=== PATIENT | female | born 1935 | race Caucasian/White ===

== ENCOUNTER 2017-04-20 08:53 | Inpatient (IN) | payer MEDICARE, BC, OTHER ==
[~2017-04-20] VITALS: Ht 165.1 cm; Wt 83.2 kg
[2017-04-20 13:15] VITALS: BP 164/72
[2017-04-20] MEDS ORDERED: SENN1TAB10 PO (13:29)
[2017-04-20] MEDS ORDERED: LISI10TA4 PO (13:29)
[2017-04-20] MEDS ORDERED: ASPI1TAB PO (13:29)
[2017-04-20] MEDS ORDERED: METO1TAB87 PO (13:29)
[2017-04-20] MEDS ORDERED: COLA100C5 PO (13:29)
[2017-04-20] MEDS ORDERED: TYLE325T5 PO (13:29)
[2017-04-20] MEDS ORDERED: VITA100066 PO (13:29)
[2017-04-20] MEDS ORDERED: PLAV1TAB2 PO (13:29)
[2017-04-20] MEDS ORDERED: ATOR80TA59 PO (13:32)
[2017-04-20] MEDS: ACETAMINOPHEN TAB 650MG DOSE (2X325MG) PO PRN ×2 (14:18→21:16)
[2017-04-20] MEDS: traMADol 50 MG TAB PO PRN (15:56)
[2017-04-20] MEDS: ANALGESIC BALM CRM 120 GM TOP PRN ×2 (16:02→21:16)
--- NOTE | 2017-04-20 17:28 | PMRNOTEPD ---
PMR Note H&P dictation RADHA JUDGE MD Apr 20, 2017 17:28
[2017-04-20 20:00] VITALS: BP 175/75
[2017-04-20] MEDS: METOPROLOL TART 12.5 MG PER 1/2 TAB PO SCH (21:15)
[2017-04-20] MEDS: ATORVASTATIN 20 MG TAB PO SCH (21:15)
[2017-04-21 06:00] VITALS: BP 136/63
[2017-04-21] MEDS: METOPROLOL TART 12.5 MG PER 1/2 TAB PO SCH ×2 (08:35→21:17)
[2017-04-21] MEDS: CLOPIDOGREL 75 MG TAB PO SCH (08:35)
[2017-04-21] MEDS: LISINOPRIL 10 MG TAB PO SCH (08:35)
[2017-04-21] MEDS: ASPIRIN 81 MG ENTERIC TAB PO SCH (08:35)
[2017-04-21] MEDS: VITAMIN D 1,000 INTERNATIONAL UNITS TABLET PO SCH (08:35)
[2017-04-21 09:44] LABS: BASO % 0.4 % (0.0-1.0); EOS # 0.1 K/mm3 (0.0-0.50); EOS % 1.2 % (0.0-3.0); LARGE UNSTAINED CELL # 0.1 K/mm3 (0.0-0.4); LARGE UNSTAINED CELL % 0.9 % (0.0-4.0); MEAN CORPUSCULAR HEMOGLOBIN 32.5 pg (27.0-33.0); MEAN CORPUSCULAR HGB CONC 34.8 g/dl (32.0-36.5); MEAN CORPUSCULAR VOLUME 93.4 fl (80.0-96.0); MONO # 0.5 K/mm3 (0.0-0.8); MONO % 4.4 % (0.0-5.0); NEUTROPHILS # 9.4 K/mm3 (1.8-7.7); NEUTROPHILS % 84.2 % (36.0-66.0); PLATELET COUNT, AUTOMATED 288 k/mm3 (150-450); RED CELL DISTRIBUTION WIDTH 12.5 % (11.5-14.5); WHITE BLOOD COUNT 11.1 K/mm3 (4.0-10.0)
[2017-04-21 10:16] LABS: ALBUMIN 3.1 GM/DL (3.2-5.2); ALBUMIN/GLOBULIN RATIO 0.91 (1.00-1.93); ALKALINE PHOSPHATASE 68 U/L (45-117); ALT/SGPT 21 U/L (12-78); ANION GAP 8 MEQ/L (8-16); AST/SGOT 22 U/L (15-37); BILIRUBIN,TOTAL 1.1 MG/DL (0.2-1.0); BLOOD UREA NITROGEN 18 MG/DL (7-18); CALCIUM LEVEL 8.5 MG/DL (8.8-10.2); CARBON DIOXIDE LEVEL 27 MEQ/L (21-32); CHLORIDE LEVEL 101 MEQ/L (98-107); CREATININE FOR GFR 0.69 MG/DL (0.55-1.02); GLOMERULAR FILTRATION RATE > 60.0 (>39); GLUCOSE, FASTING 121 MG/DL (83-110); POTASSIUM SERUM 3.9 MEQ/L (3.5-5.1); SODIUM LEVEL 136 MEQ/L (136-145); TOTAL PROTEIN 6.5 GM/DL (6.4-8.2)
[2017-04-21] MEDS: traMADol 50 MG TAB PO PRN ×2 (10:36→21:17)
[2017-04-21] MEDS: ANALGESIC BALM CRM 120 GM TOP PRN ×2 (10:37→21:22)
--- NOTE | 2017-04-21 11:05 | CR.PDOC ---
[facility] Consultation Consultation CONSULTATION REPORT FOR: Dr Oconnell REASON FOR CONSULTATION: Medical Management DATE OF VISIT: 04/21/17 ATTENDING: Dr. Jasmeet Gray PCP: Dr Faria HPI: 81year old F with a past medical history significant for Rt MCA CVA. [facility] Admission H&P not available for review at this time. Previous records from [facility] reviewed. Pt was brought to [facility] as per EMS after found on the floor at 3 AM the date of admission. She was not treated with thrombolytic. Pt with residual left sided weakness. She was felt stable to transfer to the care of Dr Oconnell [facility] ARU on 04/20/17. Pt is a poor historian. Eyes are closed throughout exam. Pt complains of chronic pain. Denies any fevers, chills, weakness, fatigue, Headache, Chest Pain, Shortness of breath, cough, palpitations, abdominal pain, N/V/D or changes in bowel or bladder habits. 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 MRI Brain [facility] 04/17/17 acute infarct c/w Rt MCA, chronic microvascular disease. CTA head/neck ordered, I do not see copy of result at this time. H/O TIA HTN Vitamin D Def HLD OA/Chronic pain/leg pain/DJD EKG [facility] 04/17/17. SR 67 bpm. TTE [facility] 04/23. Nml EF, 69%, no wall motion abnormality. personality disorder edentulous PSHX: cholecystectomy SOCHX: Resides in: [facility]. Lives with son and . Uses walker. Marital Status: Kids: 3 Tobacco use: quit 37 yo. ETOH: denies Illicit Drugs: Denies FAMHX: Children: Alive, well ROS: As noted in HPI, otherwise 11pt ROS of systems reviewed and remarkable for chronic knee pain, RLE pain, RUE pain- wearing brace at elbow. PE: GEN: 81yoF, appears stated age. Well-nourished, well developed. No acute distress. Alert and oriented x 3. Limited historian, eyes closed throughout exam. HEENT: Normocephalic, atraumatic. Sclera are nonicteric. Conjunctiva without injection. Nose midline. Nasal turbinates without bogginess. No facial asymmetry. Moist mucous membranes. Pharynx pink and moist, no cobblestoning. Neck supple, trachea midline. No lymphadenopathy or thyromegaly appreciated. CHEST: Regular rate and rhythm, +S1, +S2 LUNGS: Clear to auscultation bilaterally. No wheezes, rales, or rhonchi. Breathing appears symmetric and easy. Patient is speaking in full sentences. No accessory muscle use. ABD: Round, soft, non-tender, non-distended. +Bowel sounds throughout. No rebound or guarding. No costovertebral angle tenderness. EXT: Pulses 2+ bilaterally dorsalis pedis and radial. No lower extremity edema appreciated. SKIN: [place], dry, warm. Capillary refill <2sec. No rashes. NEURO: Alert and oriented x 3. Cranial nerves III-XII are intact. Left hemiparesis noted. A&P: 81year old F with a past medical history significant for Rt MCA CVA. [facility] Admission H&P not available for review at this time. Previous records from [facility] reviewed. Pt was brought to [facility] as per EMS after found on the floor at 3 AM the date of admission. She was not treated with thrombolytic. Pt with residual left sided weakness. She was felt stable to transfer to the care of Dr Oconnell [facility] ARU on 04/20/17. 1. Pt is transferred from [facility] to ARU under the care of Dr Oconnell. Rt MCA CVA with left hemiparesis PT/OT/speech therapy as per ARU. Pain control as per ARU. Bowel care as per ARU. DVT prophylaxis as per ARU. Patient remains on Plavix 75 mg daily, aspirin 81 mg daily and Lipitor 10 mg daily. TTE done at [facility]. Request copy of CTA head/neck report [facility], as per records it was ordered but I do not see result. Possibly consider Carotid U/S pending records. 2. HTN. Continue lisinopril 10 mg daily and metoprolol 12.5 mg twice a day. Blood pressure is noted to be 136/63. 3. Vitamin d deficiency. Continue supplement. Vitamin D level pending. 4. HLD. Continue Lipitor 10 mg daily. 5. Possible UTI. Urine culture pending. Thank you for your consultation. We will continue to follow along with you. Vital Signs/I&O Vital Signs Date Time Temp Pulse Resp B/P (MAP) Pulse Ox O2 Delivery O2 Flow Rate FiO2 04/21/17 10:36 18 04/21/17 08:35 80 136/63 04/21/17 06:00 97.9 98 Room Air I&O- Last 24 Hours up to 6 AM 04/21/17 05:59 Intake Total 160 ml Output Total 200 ml Balance -40 ml Laboratory Data Labs 24H Laboratory Tests 2 04/20/17 15:45: Urine Appearance CLOUDYH, Urine Color YUSUF, Urine pH 5.0, Urine Specific [place] 1.033, Urine Protein 1+H, Urine Glucose (UA) NEGATIVE, Urine Ketones 1+H , Urine Urobilinogen 4.0H, Urine Bilirubin 1+H, Urine Leukocyte Esterase 2+H, Urine Blood 2+H, Urine Nitrite NEGATIVE, Urine WBC (Auto) 162H, Urine RBC (Auto ) 35H, Urine Hyaline Casts (Auto) 0, Urine Bacteria (Auto) NEGATIVE, Urine Squamous Epithelial Cells 28, Urine Amorphous Sediment SMALLH, Urine Mucus (Auto ) MODERATE, Urine Sperm (Auto) 04/21/17 09:26: White Blood Count 11.1H, Red Blood Count 4.30, Hemoglobin 14.0, Hematocrit 40.2 , Mean Corpuscular Volume 93.4, Mean Corpuscular Hemoglobin 32.5, Mean Corpuscular Hemoglobin Concent 34.8, Red Cell Distribution Width 12.5, Platelet Count 288, Neutrophils (%) (Auto) 84.2H, Lymphocytes (%) (Auto) 9.0L, Monocytes (%) (Auto) 4.4, Eosinophils (%) (Auto) 1.2, Basophils (%) (Auto) 0.4, Neutrophils # (Auto) 9.4H, Lymphocytes # (Auto) 1.0L, Monocytes # (Auto) 0.5, Eosinophils # (Auto) 0.1, Basophils # (Auto) 0.0, Large Unclassified Cells % 0.9 , Large Unclassified Cells # 0.1, Anion Gap 8, Glomerular Filtration Rate > 60.0 , Blood Urea Nitrogen 18, Creatinine 0.69, Sodium Level 136, Potassium Level 3.9 , Chloride Level 101, Carbon Dioxide Level 27, Calcium Level 8.5L, Aspartate Amino Transf (AST/SGOT) 22, Alanine Aminotransferase (ALT/SGPT) 21, Alkaline Phosphatase 68, Total Bilirubin 1.1H, Total Protein 6.5, Albumin 3.1L, Albumin/ Globulin Ratio 0.91L CBC/BMP Laboratory Tests 04/21/17 09:26 Red Blood Count 4.30, Mean Corpuscular Volume 93.4, Mean Corpuscular Hemoglobin 32.5, Mean Corpuscular Hemoglobin Concent 34.8, Red Cell Distribution Width 12.5 , Neutrophils (%) (Auto) 84.2 H, Lymphocytes (%) (Auto) 9.0 L, Monocytes (%) ( Auto) 4.4, Eosinophils (%) (Auto) 1.2, Basophils (%) (Auto) 0.4, Neutrophils # ( Auto) 9.4 H, Lymphocytes # (Auto) 1.0 L, Monocytes # (Auto) 0.5, Eosinophils # ( Auto) 0.1, Basophils # (Auto) 0.0, Calcium Level 8.5 L, Aspartate Amino Transf ( AST/SGOT) 22, Alanine Aminotransferase (ALT/SGPT) 21, Alkaline Phosphatase 68, Total Bilirubin 1.1 H, Total Protein 6.5, Albumin 3.1 L Allergies Coded Allergies: Bee Venom (Verified Allergy, Unknown, 04/20/17) Contrast Media (Verified Allergy, Unknown, 04/20/17) Iodine (Unverified Allergy, Unknown, IODINE CONTRAST, 04/20/17) Penicillins (Verified Allergy, Unknown, 04/20/17) Shellfish Allergy (Unverified Allergy, Unknown, 04/20/17) Home Medications Scheduled Aspirin (Aspirin 81) 81 Mg Tab, 81 MG PO DAILY, (Reported) Atorvastatin Calcium (Atorvastatin Calcium) 80 Mg Tab, 80 MG PO QPM, (Reported) STARTED AT [facility] Cholecalciferol (Vitamin D) 1,000 Unit Tab, 1,000 UNIT PO DAILY, (Reported) Clopidogrel Bisulfate (Plavix) 75 Mg Tab, 75 MG PO DAILY, (Reported) STARTED AT [facility] Lisinopril (Lisinopril) 10 Mg Tab, 10 MG PO DAILY, (Reported) STARTED AT [facility] Metoprolol Tartrate (Metoprolol Tartrate) 25 Mg Tab, 25 MG PO BID, (Reported) PATIENT WAS ONLY RECEIVING 12.5MG AT [facility] BUT DISCHARGE MED LIST SAYS 25MG Senna (Senna Lax) 8.6 Mg Tab, 1 TAB PO BID, (Reported) Scheduled PRN Acetaminophen (Tylenol) 325 Mg Tab, 650 MG PO Q6H PRN for PAIN, (Reported) Valentina Fisher Apr 21, 2017 11:05
[2017-04-21 15:00] VITALS: BP 140/91
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
[2017-04-21] MEDS: ACETAMINOPHEN TAB 650MG DOSE (2X325MG) PO PRN (18:04)
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
[2017-04-21] MEDS: ATORVASTATIN 20 MG TAB PO SCH (21:17)
[2017-04-21 21:20] VITALS: BP 158/67
[2017-04-22 06:00] VITALS: BP 146/66
[2017-04-22 07:09] LABS: MEAN CORPUSCULAR HEMOGLOBIN 32.2 pg (27.0-33.0); MEAN CORPUSCULAR HGB CONC 34.5 g/dl (32.0-36.5); MEAN CORPUSCULAR VOLUME 93.2 fl (80.0-96.0); RED CELL DISTRIBUTION WIDTH 12.9 % (11.5-14.5); WHITE BLOOD COUNT 8.4 K/mm3 (4.0-10.0)
[2017-04-22 07:23] LABS: ALBUMIN 2.8 GM/DL (3.2-5.2); ALBUMIN/GLOBULIN RATIO 0.76 (1.00-1.93); ALKALINE PHOSPHATASE 63 U/L (45-117); ALT/SGPT 22 U/L (12-78); ANION GAP 4 MEQ/L (8-16); AST/SGOT 25 U/L (15-37); BILIRUBIN,TOTAL 0.8 MG/DL (0.2-1.0); BLOOD UREA NITROGEN 21 MG/DL (7-18); CALCIUM LEVEL 8.5 MG/DL (8.8-10.2); CARBON DIOXIDE LEVEL 28 MEQ/L (21-32); CHLORIDE LEVEL 102 MEQ/L (98-107); CREATININE FOR GFR 0.73 MG/DL (0.55-1.02); GLOMERULAR FILTRATION RATE > 60.0 (>39); GLUCOSE, FASTING 108 MG/DL (83-110); POTASSIUM SERUM 4.1 MEQ/L (3.5-5.1); SODIUM LEVEL 134 MEQ/L (136-145); TOTAL PROTEIN 6.5 GM/DL (6.4-8.2)
[2017-04-22] MEDS: VITAMIN D 1,000 INTERNATIONAL UNITS TABLET PO SCH (09:16)
[2017-04-22] MEDS: LISINOPRIL 10 MG TAB PO SCH (09:16)
[2017-04-22] MEDS: traMADol 50 MG TAB PO PRN (09:16)
[2017-04-22] MEDS: CLOPIDOGREL 75 MG TAB PO SCH (09:16)
[2017-04-22] MEDS: ASPIRIN 81 MG ENTERIC TAB PO SCH (09:16)
[2017-04-22] MEDS: METOPROLOL TART 12.5 MG PER 1/2 TAB PO SCH ×2 (09:17→21:11)
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
--- NOTE | 2017-04-22 12:17 | IPNPDOC ---
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 Patient continues with lessening frequency to report chronic, constant pain in Right > Left body. She was showing less reluctance to evaluation, care and therapy today. Patient reports hearing problems building up from ear wax. ALLERGIES: See Below MEDICATIONS: Reviewed, see below. OBJECTIVE: VITAL SIGNS: Please see below. PHYSICAL EXAMINATION: GENERAL: Obese, elderly white female with flattened affect, who appears to be in very mild to no acute distress though somewhat anxious at times. However, better energy and more engaging of staff. HEENT: Mild left facial droop but otherwise normocephalic/atraumatic. CARDIOVASCULAR: Regular rate and rhythm with normal S1-S2. LUNGS: All bro clear to auscultation. ABDOMEN: Obese with normal bowel sounds in all quadrants. NEUROLOGICAL: As above. Strength seen in bed testing for exceeds functional strength. When patient is asked to do bed mobility or sitting on edge of bed or especially to try and stand and ambulate effort is improving, though function remains low. SKIN: Coccyx blister. LABORATORY DATA: Reviewed. Please see below. MICROBIOLOGY: Please see below. IMAGING: No new imaging. DVT prophylaxis ordered?: Plavix and aspirin with DENNISE miranda. ASSESSMENT AND PLAN: 1. 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 We will trial standing frame as this should provide safe support and allow the patient to improve her tolerance for being vertical as well as work with her upper extremities unencumbered. 2. Chronic pain syndrome: We need to provide patient lots of structure and refocus her on with her many years her chronic pain, that she will continue to have pain whether or not she works. The structure appears to be working and we need to remain consistent to it as well as support patient with recognitions of the effort she does make. 3. Coccyx blister: We will try and keep patient out of incline positions rather to have her sit at greater than 80 upright or lay at less than 20 to avoid shear on her sacral region. We will also focus on trying to improve her protein nutrition. 4. 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 Dr. Pantoja's evaluation and recommendations are being looked forwarded to. 5. Very mild hyponatremia: Will continue to observe. TIME SPENT: Chart Review, examination and documentation required greater than 25 minutes. Allergies Coded Allergies: Bee Venom (Verified Allergy, Unknown, 04/20/17) Contrast Media (Verified Allergy, Unknown, 04/20/17) Iodine (Unverified Allergy, Unknown, IODINE CONTRAST, 04/20/17) Penicillins (Verified Allergy, Unknown, 04/20/17) Shellfish Allergy (Unverified Allergy, Unknown, 04/20/17) Vital Signs Vital Signs Date Time Temp Pulse Resp B/P (MAP) Pulse Ox O2 Delivery O2 Flow Rate FiO2 04/22/17 09:17 79 146/66 04/22/17 09:16 18 04/22/17 06:00 98.8 96 04/21/17 06:00 Room Air Laboratory Data CBC/BMP Laboratory Tests 04/22/17 06:46 Red Blood Count 4.07, Mean Corpuscular Volume 93.2, Mean Corpuscular Hemoglobin 32.2, Mean Corpuscular Hemoglobin Concent 34.5, Red Cell Distribution Width 12.9 , Calcium Level 8.5 L, Aspartate Amino Transf (AST/SGOT) 25, Alanine Aminotransferase (ALT/SGPT) 22, Alkaline Phosphatase 63, Total Bilirubin 0.8, Total Protein 6.5, Albumin 2.8 L Labs 24H Laboratory Tests 2 04/22/17 06:46: Anion Gap 4L, Glomerular Filtration Rate > 60.0, Blood Urea Nitrogen 21H, Creatinine 0.73, Sodium Level 134L, Potassium Level 4.1, Chloride Level 102, Carbon Dioxide Level 28, Calcium Level 8.5L, Aspartate Amino Transf (AST/SGOT) 25, Alanine Aminotransferase (ALT/SGPT) 22, Alkaline Phosphatase 63, Total Bilirubin 0.8, Total Protein 6.5, Albumin 2.8L, Albumin/Globulin Ratio 0.76L Microbiology Microbiology 04/21/17 Urine Culture, Received Pending 04/20/17 Urine Culture - Final, Complete Current Medications Current Medications Current Medications Acetaminophen (Tylenol Tab) 650 mg Q6HP PRN PO PAIN OR FEVER Last administered on 04/21/17t 18:04; Start 04/20/17 at 12:45; Stop 05/20/17 at 12:44 Aspirin (Ecotrin) 81 mg DAILY PO Last administered on 04/22/17 09:16; Start at 09:00; Stop 05/21/17 at 08:59 Atorvastatin Calcium (Lipitor) 80 mg QPM PO Last administered on 04/21/17 21: 17; Start 04/20/17 at 21:00; Stop 05/20/17 at 20:59 Bisacodyl (Dulcolax Tab) 5 mg DAILYPRN PRN PO CONSTIPATION; Start 04/20/17 at 12:45; Stop 05/20/17 at 12:44 Carbamide Perox/ Anhydrous Glycerin (Debrox) 5 drop Q12H AU ; Start 04/22/17 at 09:00; Stop 04/25/17 at 21:01 Clopidogrel Bisulfate (PLAVix) 75 mg DAILY PO Last administered on 04/22/17 09 :16; Start 04/21/17 at 09:00; Stop 05/21/17 at 08:59 Home Med (Med Rec Complete!) ASDIRECTED XX ; Start 04/20/17 at 13:45; Stop at 13:46; Status DC Lisinopril (Prinivil) 10 mg DAILY PO Last administered on 04/22/17 09:16; Start 04/21/17 at 09:00; Stop 05/21/17 at 08:59 Magnesium Hydroxide (Milk Of Magnesia) 30 ml DAILYPRN PRN PO CONSTIPATION; Start 04/20/17 at 12:45; Stop 05/20/17 at 12:44 Menthol/Methyl Salicylate (Bengay Cream) Apply topically to ri... QIDP PRN TOP Right Leg Pain Last administered on 04/21/17 21:22; Start 04/20/17 at 14:15; Stop 05/20/17 at 14:14 Metoprolol Tartrate (Lopressor) 12.5 mg BID PO Last administered on 04/22/17 09:17; Start 04/20/17 at 21:00; Stop 05/20/17 at 20:59 Sodium Biphosphate/ Sodium Phosphate (Fleet Enema) 1 ea DAILYPRN PRN AL CONSTIPATION; Start 04/20/17 at 12:45; Stop 05/20/17 at 12:44 Tramadol HCl (Ultram) 50 mg Q6HP PRN PO PAIN Last administered on 04/22/17 09: 16; Start 04/20/17 at 14:15; Stop 04/27/17 at 14:14 Vitamin D (Vitamin D) 1,000 units DAILY PO Last administered on 04/22/17 09:16 ; Start 04/21/17 at 09:00; Stop 05/21/17 at 08:59 RADHA JUDGE MD Apr 22, 2017 12:17
[2017-04-22 14:00] VITALS: BP 143/75
--- NOTE | 2017-04-22 14:49 | IPNPDOC ---
Date Seen The patient was seen on 04/22/17. Progress Note HPI: 81year old F with a past medical history significant for Rt MCA CVA. Pt was brought to [facility] as per EMS after found on the floor at 3 AM the date of admission. She was not treated with thrombolytic. Pt with residual left sided weakness. She was felt stable to transfer [facility] the care of [facility]. Pt is a poor historian. Pt complains of chronic pain. She is OOB to recliner and eating at this time. Denies any fevers, chills, weakness, fatigue, Headache, Chest Pain, Shortness of breath, cough, palpitations, abdominal pain, N/V/D or changes in bowel or bladder habits. 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 MRI Brain [facility] 04/17/17 acute infarct c/w Rt MCA, chronic microvascular disease. CTA head/neck ordered, I do not see copy of result at this time. H/O TIA HTN Vitamin D Def HLD OA/Chronic pain/leg pain/DJD EKG [facility] 04/17/17. SR 67 bpm. TTE [facility] 04/23. Nml EF, 69%, no wall motion abnormality. personality disorder edentulous PSHX: cholecystectomy ROS: As noted in HPI, otherwise 11pt ROS of systems reviewed and remarkable for chronic knee pain, RLE pain, RUE pain- wears brace at elbow. PE: GEN: 81yoF, appears stated age. Well-nourished, well developed. No acute distress. Alert and oriented x 3. Limited historian. HEENT: Normocephalic, atraumatic. Sclera are nonicteric. Conjunctiva without injection. Nose midline. Moist mucous membranes. Pharynx pink and moist. Neck supple, trachea midline. No lymphadenopathy or thyromegaly appreciated. CHEST: Regular rate and rhythm, +S1, +S2 LUNGS: Clear to auscultation bilaterally. No wheezes, rales, or rhonchi. Breathing appears symmetric and easy. Patient is speaking in full sentences. No accessory muscle use. ABD: Round, soft, non-tender, non-distended. +Bowel sounds throughout. No rebound or guarding. No costovertebral angle tenderness. EXT: Pulses 2+ bilaterally dorsalis pedis and radial. No lower extremity edema appreciated. SKIN: [place], dry, warm. Capillary refill <2sec. No rashes. NEURO: Alert and oriented x 3. Cranial nerves III-XII are intact. Left hemiparesis noted. A&P: 81year old F with a past medical history significant for Rt MCA CVA. Pt was brought to [facility] as per EMS after found on the floor at 3 AM the date of admission. She was not treated with thrombolytic. Pt with residual left sided weakness. She was felt stable to transfer to the care of Dr Oconnell [facility] on 04/20/17. 1. Pt is transferred from [facility] to ARU under the care of Dr Oconnell. Rt MCA CVA with left hemiparesis PT/OT/speech therapy as per ARU. Pain control as per ARU. Bowel care as per ARU. DVT prophylaxis as per ARU. Patient remains on Plavix 75 mg daily, aspirin 81 mg daily and Lipitor 10 mg daily. TTE done at [facility]. Requested copy of CTA head/neck report [facility], as per records it was ordered but I do not see result. Possibly consider Carotid U/S pending records. Records are pending. 2. HTN. Continue lisinopril 10 mg daily and metoprolol 12.5 mg twice a day. Blood pressure is noted to be 146/66. Monitor. 3. Vitamin d deficiency. Continue supplement. Vitamin D level 34.1. 4. HLD. Continue Lipitor 10 mg daily. 5. Abnormal UA. Contaminated specimen. Urine culture negative. VS, I&O, 24H, Fishbone Vital Signs/I&O Vital Signs Date Time Temp Pulse Resp B/P (MAP) Pulse Ox O2 Delivery O2 Flow Rate FiO2 04/22/17 09:17 79 146/66 04/22/17 09:16 18 04/22/17 06:00 98.8 96 04/21/17 06:00 Room Air I&O- Last 24 Hours up to 6 AM 04/22/17 06:00 Intake Total 660 ml Output Total 430 ml Balance 230 ml Laboratory Data 24H LABS Laboratory Tests 2 04/22/17 06:46: Anion Gap 4L, Glomerular Filtration Rate > 60.0, Blood Urea Nitrogen 21H, Creatinine 0.73, Sodium Level 134L, Potassium Level 4.1, Chloride Level 102, Carbon Dioxide Level 28, Calcium Level 8.5L, Aspartate Amino Transf (AST/SGOT) 25, Alanine Aminotransferase (ALT/SGPT) 22, Alkaline Phosphatase 63, Total Bilirubin 0.8, Total Protein 6.5, Albumin 2.8L, Albumin/Globulin Ratio 0.76L CBC/BMP Laboratory Tests 04/22/17 06:46 Red Blood Count 4.07, Mean Corpuscular Volume 93.2, Mean Corpuscular Hemoglobin 32.2, Mean Corpuscular Hemoglobin Concent 34.5, Red Cell Distribution Width 12.9 , Calcium Level 8.5 L, Aspartate Amino Transf (AST/SGOT) 25, Alanine Aminotransferase (ALT/SGPT) 22, Alkaline Phosphatase 63, Total Bilirubin 0.8, Total Protein 6.5, Albumin 2.8 L Microbiology Microbiology 04/22/17 MRSA Screen, Received Pending 04/21/17 Urine Culture - Final, Complete 04/20/17 Urine Culture - Final, Complete Valentina Fisher Apr 22, 2017 14:49
[2017-04-22] MEDS: CARBAMIDE PEROXIDE 6.5% OTIC SOLN 15ML AU SCH ×2 (14:57→21:12)
[2017-04-22] MEDS: BISACODYL 5 MG TAB PO PRN (17:48)
[2017-04-22] MEDS: MOM 30ML SUSPENSION UDC PO PRN (17:48)
[2017-04-22 20:00] VITALS: BP 158/70
[2017-04-22] MEDS: ATORVASTATIN 20 MG TAB PO SCH (21:11)
[2017-04-23 06:00] VITALS: BP 133/84
[2017-04-23] MEDS: CARBAMIDE PEROXIDE 6.5% OTIC SOLN 15ML AU SCH ×2 (09:04→21:04)
[2017-04-23] MEDS: ANALGESIC BALM CRM 120 GM TOP PRN (09:06)
[2017-04-23] MEDS: METOPROLOL TART 12.5 MG PER 1/2 TAB PO SCH ×2 (09:07→21:01)
[2017-04-23] MEDS: CLOPIDOGREL 75 MG TAB PO SCH (09:08)
[2017-04-23] MEDS: VITAMIN D 1,000 INTERNATIONAL UNITS TABLET PO SCH (09:08)
[2017-04-23] MEDS: LISINOPRIL 10 MG TAB PO SCH (09:08)
[2017-04-23] MEDS: ASPIRIN 81 MG ENTERIC TAB PO SCH (09:08)
[2017-04-23] MEDS: traMADol 50 MG TAB PO PRN (09:15)
[2017-04-23 14:31] VITALS: BP 130/62
[2017-04-23] MEDS: MOM 30ML SUSPENSION UDC PO PRN (16:40)
[2017-04-23] MEDS: ONDANSETRON 4 MG TAB (S0181) PO PRN (16:41)
[2017-04-23 20:00] VITALS: BP 133/62
[2017-04-23] MEDS: BISACODYL 5 MG TAB PO PRN (21:03)
[2017-04-23] MEDS: ATORVASTATIN 20 MG TAB PO SCH (21:03)
[2017-04-24] MEDS: ANALGESIC BALM CRM 120 GM TOP PRN ×3 (00:13→19:52)
[2017-04-24 06:00] VITALS: BP 130/57
[2017-04-24] MEDS: traMADol 50 MG TAB PO PRN ×2 (09:03→17:44)
[2017-04-24] MEDS: VITAMIN D 1,000 INTERNATIONAL UNITS TABLET PO SCH (09:04)
[2017-04-24] MEDS: ASPIRIN 81 MG ENTERIC TAB PO SCH (09:04)
[2017-04-24] MEDS: CLOPIDOGREL 75 MG TAB PO SCH (09:04)
[2017-04-24] MEDS: LISINOPRIL 10 MG TAB PO SCH (09:05)
[2017-04-24] MEDS: METOPROLOL TART 12.5 MG PER 1/2 TAB PO SCH ×2 (09:05→19:51)
[2017-04-24] MEDS: ONDANSETRON 4 MG TAB (S0181) PO PRN (09:05)
[2017-04-24] MEDS: CARBAMIDE PEROXIDE 6.5% OTIC SOLN 15ML AU SCH ×2 (09:06→19:51)
[2017-04-24] MEDS: FLEET ENEMA PR PRN (09:10)
[2017-04-24 14:00] VITALS: BP 115/55
[2017-04-24] MEDS: ATORVASTATIN 20 MG TAB PO SCH (19:50)
[2017-04-24 20:00] VITALS: BP 129/61
[2017-04-25 06:00] VITALS: BP 119/54
[2017-04-25] MEDS: LISINOPRIL 10 MG TAB PO SCH (08:19)
[2017-04-25] MEDS: ASPIRIN 81 MG ENTERIC TAB PO SCH (08:19)
[2017-04-25] MEDS: CLOPIDOGREL 75 MG TAB PO SCH (08:19)
[2017-04-25] MEDS: VITAMIN D 1,000 INTERNATIONAL UNITS TABLET PO SCH (08:19)
[2017-04-25] MEDS: CARBAMIDE PEROXIDE 6.5% OTIC SOLN 15ML AU SCH ×2 (08:20→20:12)
[2017-04-25] MEDS: METOPROLOL TART 12.5 MG PER 1/2 TAB PO SCH ×2 (08:20→20:09)
--- NOTE | 2017-04-25 09:04 | IPNPDOC ---
Date Seen The patient was seen on 04/25/17. Progress Note HPI: 81year old F with a past medical history significant for Rt MCA CVA. Pt was brought to [facility] as per EMS after found on the floor at 3 AM the date of admission. She was not treated with thrombolytic. Pt with residual left sided weakness. She was felt stable to transfer to the care of Dr Oconnell [facility] on 04/20/17. Pt is a poor historian. Pt continues with chronic pain. She is sitting up in bed eating at this time. Denies any fevers, chills, weakness, fatigue, Headache, Chest Pain, Shortness of breath, cough, palpitations, abdominal pain, N/V/D or changes in bowel or bladder habits. 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 MRI Brain [facility] 04/17/17 acute infarct c/w Rt MCA, chronic microvascular disease. CTA head/neck ordered, I do not see copy of result at this time. H/O TIA HTN Vitamin D Def HLD OA/Chronic pain/leg pain/DJD EKG [facility] 04/17/17. SR 67 bpm. TTE [facility] 04/23. Nml EF, 69%, no wall motion abnormality. personality disorder edentulous PSHX: cholecystectomy ROS: As noted in HPI, otherwise 11pt ROS of systems reviewed and remarkable for chronic knee pain, RLE pain, RUE pain- wears brace at elbow. Item Value Date Time Sodium Level 134 MEQ/L L 04/22/17 0646 Potassium Level 4.1 MEQ/L 04/22/17 0646 Chloride Level 102 MEQ/L 04/22/17 0646 Carbon Dioxide Level 28 MEQ/L 04/22/17 0646 Anion Gap 4 MEQ/L L 04/22/17 0646 Blood Urea Nitrogen 21 MG/DL H 04/22/17 0646 Creatinine 0.73 MG/DL 04/22/17 0646 White Blood Count 8.4 K/mm3 04/22/17 0646 Red Blood Count 4.07 M/mm3 04/22/17 0646 Hemoglobin 13.1 g/dl 04/22/17 0646 Hematocrit 37.9 % 04/22/17 0646 Mean Corpuscular Volume 93.2 fl 04/22/17 0646 Mean Corpuscular Hemoglobin 32.2 pg 04/22/17 0646 Mean Corpuscular Hemoglobin Concent 34.5 g/dl 04/22/17 06 Red Cell Distribution Width 12.9 % 04/22/17 06 Platelet Count 268 k/mm3 04/22/17 0646 PE: GEN: 81yoF, appears stated age. Well-nourished, well developed. No acute distress. Alert and oriented x 3. Limited historian. HEENT: Normocephalic, atraumatic. Sclera are nonicteric. Conjunctiva without injection. Nose midline. Moist mucous membranes. trachea midline. No lymphadenopathy or thyromegaly appreciated. CHEST: Regular rate and rhythm, +S1, +S2 LUNGS: Clear to auscultation bilaterally. No wheezes, rales, or rhonchi. Breathing appears symmetric and easy. Patient is speaking in full sentences. No accessory muscle use. ABD: Round, soft, non-tender, non-distended. +Bowel sounds throughout. No rebound or guarding. No costovertebral angle tenderness. EXT: Pulses 2+ bilaterally dorsalis pedis and radial. No lower extremity edema appreciated. SKIN: [place], dry, warm. NEURO: Alert and oriented x 3. Left hemiparesis noted. A&P: 81year old F with a past medical history significant for Rt MCA CVA. Pt was brought to [facility] as per EMS after found on the floor at 3 AM the date of admission. She was not treated with thrombolytic. Pt with residual left sided weakness. She was felt stable to transfer to the care of Dr Oconnell [facility] on 04/20/17. 1. Pt is transferred from [facility] to ARU under the care of Dr Oconnell. Rt MCA CVA with left hemiparesis PT/OT/speech therapy as per ARU. Pain control as per ARU. Bowel care as per ARU. DVT prophylaxis as per ARU. Patient remains on Plavix 75 mg daily, aspirin 81 mg daily and Lipitor 10 mg daily. TTE done at [facility]. Requested copy of CTA head/neck report [facility], as per records it was ordered but I do not see result. Possibly consider Carotid U/S pending records. Records are still pending. 2. HTN. Continue lisinopril 10 mg daily and metoprolol 12.5 mg twice a day. Blood pressure is noted to be 119/54. Monitor. 3. Vitamin d deficiency. Continue supplement. Vitamin D level 34.1. 4. HLD. Continue Lipitor 10 mg daily. 5. Abnormal UA. Contaminated specimen. Urine culture negative 04/21/17. 6. Hypionatremia. 134 /. previously WNL, Recheck labs in AM. VS, I&O, 24H, Fishbone Vital Signs/I&O Vital Signs Date Time Temp Pulse Resp B/P (MAP) Pulse Ox O2 Delivery O2 Flow Rate FiO2 04/25/17 08:20 74 119/54 04/25/17 06:00 98.8 18 93 Room Air I&O- Last 24 Hours up to 6 AM 04/25/17 05:59 Intake Total 750 ml Output Total 400 ml Balance 350 ml Laboratory Data Microbiology Microbiology 04/24/17 Eye/Ear/Nose/Throat Culture, Received Pending 04/23/17 Eye/Ear/Nose/Throat Culture, Received Pending 04/22/17 MRSA Screen - Final, Complete 04/21/17 Urine Culture - Final, Complete 04/20/17 Urine Culture - Final, Complete Valentina Fisher Apr 25, 2017 09:03
--- NOTE | 2017-04-25 10:23 | IPNPDOC ---
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 Patient continues with lessening frequency to report chronic, constant pain in Right > Left body. Reports and family may not want her to come home. ALLERGIES: See Below MEDICATIONS: Reviewed, see below. OBJECTIVE: VITAL SIGNS: Please see below. PHYSICAL EXAMINATION: GENERAL: Obese, elderly white female with flattened affect, who appears to be in very mild to no acute distress though somewhat anxious at times. However, better energy and more engaging of staff. HEENT: Mild left facial droop but otherwise normocephalic/atraumatic. CARDIOVASCULAR: Regular rate and rhythm with normal S1-S2. LUNGS: All bro clear to auscultation. ABDOMEN: Obese with normal bowel sounds in all quadrants. NEUROLOGICAL: As above. Strength seen in bed testing for exceeds functional strength. When patient is asked to do bed mobility or sitting on edge of bed or especially to try and stand and ambulate effort is improving, though function remains low. SKIN: Coccyx blister. LABORATORY DATA: Reviewed. Please see below. MICROBIOLOGY: Please see below. IMAGING: No new imaging. DVT prophylaxis ordered?: Plavix and aspirin with DENNISE miranda. ASSESSMENT AND PLAN: 1. 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 We will trial standing frame as this should provide safe support and allow the patient to improve her tolerance for being vertical as well as work with her upper extremities unencumbered. Patient reviewed in TEAM ROUNDS today, with Reports of patient declining some therapy activities and seeming more withdrawn/ depressed. However, it appears she will participate in 3 hours today, but need to have her invested in doing the recommended therapy and not trying to pick what she likes [place]. If not progressing and participating fully will look at other treatment options/environments. Left neglect is a major problem in learning skills at this time. Also we need to increase time up to get patient use to it. 2. Chronic pain syndrome: We need to provide patient lots of structure and refocus her on with her many years her chronic pain, that she will continue to have pain whether or not she works. The structure appears to be working and we need to remain consistent to it as well as support patient with recognitions of the effort she does make. 3. Coccyx blister: We will try and keep patient out of incline positions rather to have her sit at greater than 80 upright or lay at less than 20 to avoid shear on her sacral region. We will also focus on trying to improve her protein nutrition. 4. 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 Dr. Pantoja's evaluation and recommendations are being looked forwarded to but not yet seen. I was not able to find it in the written chart. I have paged him. Hopefully, a report and care plan are forthcoming soon. 5. Very mild hyponatremia: Will continue to observe with CMP tomorrow and BMP on . TIME SPENT: Chart Review, examination and documentation required greater than 35 minutes. Allergies Coded Allergies: Bee Venom (Verified Allergy, Unknown, 04/20/17) Contrast Media (Verified Allergy, Unknown, 04/20/17) Iodine (Unverified Allergy, Unknown, IODINE CONTRAST, 04/20/17) Penicillins (Verified Allergy, Unknown, 04/20/17) Shellfish Allergy (Unverified Allergy, Unknown, 04/20/17) Vital Signs Vital Signs Date Time Temp Pulse Resp B/P (MAP) Pulse Ox O2 Delivery O2 Flow Rate FiO2 04/25/17 08:20 74 119/54 04/25/17 06:00 98.8 18 93 Room Air Microbiology Microbiology 04/24/17 Eye/Ear/Nose/Throat Culture, Received Pending 04/23/17 Eye/Ear/Nose/Throat Culture, Received Pending 04/22/17 MRSA Screen - Final, Complete 04/21/17 Urine Culture - Final, Complete 04/20/17 Urine Culture - Final, Complete Current Medications Current Medications Current Medications Acetaminophen (Tylenol Tab) 650 mg Q6HP PRN PO PAIN OR FEVER Last administered on 04/21/17 18:04; Start 04/20/17 at 12:45; Stop 05/20/17 at 12:44 Aspirin (Ecotrin) 81 mg DAILY PO Last administered on 04/25/17 08:19; Start at 09:00; Stop 05/21/17 at 08:59 Atorvastatin Calcium (Lipitor) 80 mg QPM PO Last administered on 04/24/17 19: 50; Start 04/20/17 at 21:00; Stop 05/20/17 at 20:59 Bisacodyl (Dulcolax Tab) 5 mg DAILYPRN PRN PO CONSTIPATION Last administered on 04/23/17 21:03; Start 04/20/17 at 12:45; Stop 05/20/17 at 12:44 Carbamide Perox/ Anhydrous Glycerin (Debrox) 5 drop Q12H AU Last administered on 04/25/17 08:20; Start 04/22/17 at 09:00; Stop 04/25/17 at 21:01 Clopidogrel Bisulfate (PLAVix) 75 mg DAILY PO Last administered on 04/25/17 08 :19; Start 04/21/17 at 09:00; Stop 05/21/17 at 08:59 Home Med (Med Rec Complete!) ASDIRECTED XX ; Start 04/20/17 at 13:45; Stop at 13:46; Status DC Lisinopril (Prinivil) 10 mg DAILY PO Last administered on 04/25/17 08:19; Start 04/21/17 at 09:00; Stop 05/21/17 at 08:59 Magnesium Hydroxide (Milk Of Magnesia) 30 ml DAILYPRN PRN PO CONSTIPATION Last administered on 04/23/17 16:40; Start 04/20/17 at 12:45; Stop 05/20/17 at 12:44 Menthol/Methyl Salicylate (Bengay Cream) Apply topically to ri... QIDP PRN TOP Right Leg Pain Last administered on 04/24/17 19:52; Start 04/20/17 at 14:15; Stop 05/20/17 at 14:14 Metoprolol Tartrate (Lopressor) 12.5 mg BID PO Last administered on 04/25/17 08:20; Start 04/20/17 at 21:00; Stop 05/20/17 at 20:59 Ondansetron HCl (Zofran) 4 mg Q8HP PRN PO NAUSEA OR VOMITING Last administered on 04/24/17 09:05; Start 04/23/17 at 11:45; Stop 05/23/17 at 11:44 Sodium Biphosphate/ Sodium Phosphate (Fleet Enema) 1 ea DAILYPRN PRN [place] CONSTIPATION Last administered on 04/24/17 09:10; Start 04/20/17 at 12:45; Stop 05/20/17 at 12:44 Tramadol HCl (Ultram) 50 mg Q6HP PRN PO PAIN Last administered on 04/24/17 17: 44; Start 04/20/17 at 14:15; Stop 05/04/17 at 12:00 Vitamin D (Vitamin D) 1,000 units DAILY PO Last administered on 04/25/17 08:19 ; Start 04/21/17 at 09:00; Stop 05/21/17 at 08:59 RADHA JUDGE MD Apr 25, 2017 10:23
[2017-04-25 14:00] VITALS: BP 124/59
[2017-04-25 20:00] VITALS: BP 113/56
[2017-04-25] MEDS: ATORVASTATIN 20 MG TAB PO SCH (20:09)
[2017-04-25] MEDS: traMADol 50 MG TAB PO PRN (20:12)
[2017-04-25] MEDS: CLOTRIMAZOLE 1% VAG CR 45 GM TOP SCH (20:12)
[2017-04-26 06:00] VITALS: BP 150/70
[2017-04-26 07:23] LABS: ALBUMIN 2.8 GM/DL (3.2-5.2); ALBUMIN/GLOBULIN RATIO 0.78 (1.00-1.93); ALKALINE PHOSPHATASE 68 U/L (45-117); ALT/SGPT 24 U/L (12-78); ANION GAP 6 MEQ/L (8-16); AST/SGOT 19 U/L (15-37); BLOOD UREA NITROGEN 19 MG/DL (7-18); CALCIUM LEVEL 8.4 MG/DL (8.8-10.2); CARBON DIOXIDE LEVEL 30 MEQ/L (21-32); CHLORIDE LEVEL 101 MEQ/L (98-107); CREATININE FOR GFR 0.77 MG/DL (0.55-1.02); GLOMERULAR FILTRATION RATE > 60.0 (>39); GLUCOSE, FASTING 99 MG/DL (83-110); POTASSIUM SERUM 4.7 MEQ/L (3.5-5.1); SODIUM LEVEL 137 MEQ/L (136-145); TOTAL PROTEIN 6.4 GM/DL (6.4-8.2)
[2017-04-26] MEDS: ASPIRIN 81 MG ENTERIC TAB PO SCH (08:42)
[2017-04-26] MEDS: VITAMIN D 1,000 INTERNATIONAL UNITS TABLET PO SCH (08:42)
[2017-04-26] MEDS: CLOTRIMAZOLE 1% VAG CR 45 GM TOP SCH ×2 (08:42→20:01)
[2017-04-26] MEDS: LISINOPRIL 10 MG TAB PO SCH (08:42)
[2017-04-26] MEDS: CLOPIDOGREL 75 MG TAB PO SCH (08:42)
[2017-04-26] MEDS: METOPROLOL TART 12.5 MG PER 1/2 TAB PO SCH ×2 (08:42→20:05)
--- NOTE | 2017-04-26 10:59 | IPNPDOC ---
Date Seen The patient was seen on 04/26/17. Progress Note HPI: 81year old F with a past medical history significant for Rt MCA CVA. Pt was brought to [facility] as per EMS after found on the floor at 3 AM the date of admission. She was not treated with thrombolytic. Pt with residual left sided weakness. She was felt stable to transfer to the care of Dr Oconnell [facility] on 04/20/17. Pt is a poor historian. Pt continues with chronic pain. She is sitting up in chair eating at this time. Denies any fevers, chills, weakness, fatigue, Headache, Chest Pain, Shortness of breath, cough, palpitations, abdominal pain, N/V/D or changes in bowel or bladder habits. 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 MRI Brain [facility] 04/17/17 acute infarct c/w Rt MCA, chronic microvascular disease. CTA head/neck ordered, I do not see copy of result at this time. H/O TIA HTN Vitamin D Def HLD OA/Chronic pain/leg pain/DJD EKG [facility] 04/17/17. SR 67 bpm. TTE [facility] 04/23. Nml EF, 69%, no wall motion abnormality. personality disorder edentulous PSHX: cholecystectomy ROS: As noted in HPI, otherwise 11pt ROS of systems reviewed and remarkable for chronic knee pain, RLE pain, RUE pain- wears brace at elbow. PE: GEN: 81yoF, appears stated age. Well-nourished, well developed. No acute distress. Alert and oriented x 3. Limited historian. HEENT: Normocephalic, atraumatic. Sclera are nonicteric. Conjunctiva without injection. Nose midline. Moist mucous membranes. trachea midline. No lymphadenopathy or thyromegaly appreciated. CHEST: Regular rate and rhythm, +S1, +S2 LUNGS: Clear to auscultation bilaterally. No wheezes, rales, or rhonchi. Breathing appears symmetric and easy. Patient is speaking in full sentences. No accessory muscle use. ABD: Round, soft, non-tender, non-distended. +Bowel sounds throughout. No rebound or guarding. No costovertebral angle tenderness. EXT: Pulses 2+ bilaterally dorsalis pedis and radial. No lower extremity edema appreciated. SKIN: [place], dry, warm. NEURO: Alert and oriented x 3. Left hemiparesis/hemineglect noted. A&P: 81year old F with a past medical history significant for Rt MCA CVA. Pt was brought to [facility] as per EMS after found on the floor at 3 AM the date of admission. She was not treated with thrombolytic. Pt with residual left sided weakness. She was felt stable to transfer to the care of Dr Oconnell [facility] on 04/20/17. 1. Pt is transferred from [facility] to ARU under the care of Dr Oconnell. Rt MCA CVA with left hemiparesis PT/OT/speech therapy as per ARU. Pain control as per ARU. Bowel care as per ARU. DVT prophylaxis as per ARU. Patient remains on Plavix 75 mg daily, aspirin 81 mg daily and Lipitor 10 mg daily. TTE done at [facility]. Requested copy of CTA head/neck report [facility], as per records it was ordered but I do not see result. Possibly consider Carotid U/S pending records. Records are still pending. 2. HTN. Continue lisinopril 10 mg daily and metoprolol 12.5 mg twice a day. Blood pressure is 113/56-150/70. Monitor. 3. Vitamin d deficiency. Continue supplement. Vitamin D level 34.1. 4. HLD. Continue Lipitor 10 mg daily. 5. Abnormal UA. Contaminated specimen. Urine culture negative 04/21/17. 6. Hypionatremia. resolved. Item Value Date Time Sodium Level 137 MEQ/L 04/26/17 0639 Potassium Level 4.7 MEQ/L 04/26/17 0639 Chloride Level 101 MEQ/L 04/26/17 0639 Carbon Dioxide Level 30 MEQ/L 04/26/17 0639 Anion Gap 6 MEQ/L L 04/26/17 0639 Blood Urea Nitrogen 19 MG/DL H 04/26/17 0639 Creatinine 0.77 MG/DL 04/26/17 0639 Glomerular Filtration Rate > 60.0 04/26/17 0639 Fasting Glucose 99 MG/DL 04/26/17 0639 Calcium Level 8.4 MG/DL L 04/26/17 0639 Total Bilirubin 1.0 MG/DL 04/26/17 0639 Aspartate Amino Transf (AST/SGOT) 19 U/L 04/26/17 0639 Alanine Aminotransferase (ALT/SGPT) 24 U/L 04/26/17 0639 Alkaline Phosphatase 68 U/L 04/26/17 0639 Total Protein 6.4 GM/DL 04/26/17 0639 Albumin 2.8 GM/DL L 04/26/17 0639 Albumin/Globulin Ratio 0.78 L 04/26/17 0639 VS, I&O, 24H, Fishbone Vital Signs/I&O Vital Signs Date Time Temp Pulse Resp B/P (MAP) Pulse Ox O2 Delivery O2 Flow Rate FiO2 04/26/17 08:42 72 150/70 04/26/17 06:00 98.0 18 96 Room Air I&O- Last 24 Hours up to 6 AM 04/26/17 05:59 Intake Total 270 ml Output Total 475 ml Balance -205 ml Laboratory Data 24H LABS Laboratory Tests 2 04/26/17 06:39: Anion Gap 6L, Glomerular Filtration Rate > 60.0, Blood Urea Nitrogen 19H, Creatinine 0.77, Sodium Level 137, Potassium Level 4.7, Chloride Level 101, Carbon Dioxide Level 30, Calcium Level 8.4L, Aspartate Amino Transf (AST/SGOT) 19, Alanine Aminotransferase (ALT/SGPT) 24, Alkaline Phosphatase 68, Total Bilirubin 1.0, Total Protein 6.4, Albumin 2.8L, Albumin/Globulin Ratio 0.78L CBC/BMP Laboratory Tests 04/26/17 06:39 Calcium Level 8.4 L, Aspartate Amino Transf (AST/SGOT) 19, Alanine Aminotransferase (ALT/SGPT) 24, Alkaline Phosphatase 68, Total Bilirubin 1.0, Total Protein 6.4, Albumin 2.8 L Microbiology Microbiology 04/24/17 Eye/Ear/Nose/Throat Culture, Received Pending 04/23/17 Eye/Ear/Nose/Throat Culture - Final, Complete 04/22/17 MRSA Screen - Final, Complete 04/21/17 Urine Culture - Final, Complete 04/20/17 Urine Culture - Final, Complete Valentina Fisher Apr 26, 2017 10:59
[2017-04-26 14:00] VITALS: BP 118/57
--- NOTE | 2017-04-26 14:13 | IPNPDOC ---
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 Patient continues with lessening frequency to report chronic, constant pain in Right > Left body. Reports and family may not want her to come home. ALLERGIES: See Below MEDICATIONS: Reviewed, see below. OBJECTIVE: VITAL SIGNS: Please see below. PHYSICAL EXAMINATION: GENERAL: Obese, elderly white female with flattened affect, who appears to be in very mild to no acute distress though somewhat anxious at times. HEENT: Mild left facial droop but otherwise normocephalic/atraumatic. CARDIOVASCULAR: Regular rate and rhythm with normal S1-S2. LUNGS: All bro clear to auscultation. ABDOMEN: Obese with normal bowel sounds in all quadrants. NEUROLOGICAL: As above. Some strength seen in bed testing for exceeds functional strength. When patient is asked to do bed mobility or sitting on edge of bed or especially to try and stand and ambulate effort is improving, though function remains low. SKIN: Coccyx blister. LABORATORY DATA: Reviewed. Please see below. MICROBIOLOGY: Please see below. IMAGING: No new imaging. DVT prophylaxis ordered?: Plavix and aspirin with DENNISE miranda. ASSESSMENT AND PLAN: 1. 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 We will trial standing frame as this should provide safe support and allow the patient to improve her tolerance for being vertical as well as work with her upper extremities unencumbered. Patient is easily discouraged I feel and needs to be supported in her successes. She keeps saying that her family does not want her to return home. Patient encouraged to work to make home a reality by increasing her independence. 2. Chronic pain syndrome: We need to provide patient lots of structure and refocus her on with her many years her chronic pain, that she will continue to have pain whether or not she works. The structure appears to be working and we need to remain consistent to it as well as support patient with recognitions of the effort she does make. 3. Coccyx blister: We will try and keep patient out of incline positions rather to have her sit at greater than 80 upright or lay at less than 20 to avoid shear on her sacral region. We will also focus on trying to improve her protein nutrition. 4. 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 Dr. Pantoja's evaluation and recommendations are being looked forwarded to but not yet seen.Hopefully, a report and care plan are forthcoming soon. 5. Hyponatremia: Will continue to observe with CMP tomorrow and BMP on after 134 Na+ on Tuesday and 137 today. TIME SPENT: Chart Review, examination and documentation required greater than 25 minutes. Allergies Coded Allergies: Bee Venom (Verified Allergy, Unknown, 04/20/17) Contrast Media (Verified Allergy, Unknown, 04/20/17) Iodine (Unverified Allergy, Unknown, IODINE CONTRAST, 04/20/17) Penicillins (Verified Allergy, Unknown, 04/20/17) Shellfish Allergy (Unverified Allergy, Unknown, 04/20/17) Vital Signs Vital Signs Date Time Temp Pulse Resp B/P (MAP) Pulse Ox O2 Delivery O2 Flow Rate FiO2 04/26/17 08:42 72 150/70 04/26/17 06:00 98.0 18 96 Room Air Laboratory Data CBC/BMP Laboratory Tests 04/26/17 06:39 Calcium Level 8.4 L, Aspartate Amino Transf (AST/SGOT) 19, Alanine Aminotransferase (ALT/SGPT) 24, Alkaline Phosphatase 68, Total Bilirubin 1.0, Total Protein 6.4, Albumin 2.8 L Labs 24H Laboratory Tests 2 04/26/17 06:39: Anion Gap 6L, Glomerular Filtration Rate > 60.0, Blood Urea Nitrogen 19H, Creatinine 0.77, Sodium Level 137, Potassium Level 4.7, Chloride Level 101, Carbon Dioxide Level 30, Calcium Level 8.4L, Aspartate Amino Transf (AST/SGOT) 19, Alanine Aminotransferase (ALT/SGPT) 24, Alkaline Phosphatase 68, Total Bilirubin 1.0, Total Protein 6.4, Albumin 2.8L, Albumin/Globulin Ratio 0.78L Microbiology Microbiology 04/24/17 Eye/Ear/Nose/Throat Culture, Received Pending 04/23/17 Eye/Ear/Nose/Throat Culture - Final, Complete 04/22/17 MRSA Screen - Final, Complete 04/21/17 Urine Culture - Final, Complete 04/20/17 Urine Culture - Final, Complete Current Medications Current Medications Current Medications Acetaminophen (Tylenol Tab) 650 mg Q6HP PRN PO PAIN OR FEVER Last administered on 04/21/17 18:04; Start 04/20/17 at 12:45; Stop 05/20/17 at 12:44 Aspirin (Ecotrin) 81 mg DAILY PO Last administered on 04/26/17 08:42; Start at 09:00; Stop 05/21/17 at 08:59 Atorvastatin Calcium (Lipitor) 80 mg QPM PO Last administered on 04/25/17 20: 09; Start 04/20/17 at 21:00; Stop 05/20/17 at 20:59 Bisacodyl (Dulcolax Tab) 5 mg DAILYPRN PRN PO CONSTIPATION Last administered on 04/23/17 21:03; Start 04/20/17 at 12:45; Stop 05/20/17 at 12:44 Carbamide Perox/ Anhydrous Glycerin (Debrox) 5 drop Q12H AU Last administered on 04/25/17 20:12; Start 04/22/17 at 09:00; Stop 04/25/17 at 21:01; Status DC Clopidogrel Bisulfate (PLAVix) 75 mg DAILY PO Last administered on 04/26/17 08 :42; Start 04/21/17 at 09:00; Stop 05/21/17 at 08:59 Clotrimazole (Lotrimin 1% Vag) BID TOP Last administered on 04/26/17 08:42; Start 04/25/17 at 21:00; Stop 05/02/17 at 20:59 Home Med (Med Rec Complete!) ASDIRECTED XX ; Start 04/20/17 at 13:45; Stop at 13:46; Status DC Lisinopril (Prinivil) 10 mg DAILY PO Last administered on 04/26/17 08:42; Start 04/21/17 at 09:00; Stop 05/21/17 at 08:59 Magnesium Hydroxide (Milk Of Magnesia) 30 ml DAILYPRN PRN PO CONSTIPATION Last administered on 04/23/17 16:40; Start 04/20/17 at 12:45; Stop 05/20/17 at 12:44 Menthol/Methyl Salicylate (Bengay Cream) Apply topically to ri... QIDP PRN TOP Right Leg Pain Last administered on 04/24/17 19:52; Start 04/20/17 at 14:15; Stop 05/20/17 at 14:14 Metoprolol Tartrate (Lopressor) 12.5 mg BID PO Last administered on 04/26/17 08:42; Start 04/20/17 at 21:00; Stop 05/20/17 at 20:59 Ondansetron HCl (Zofran) 4 mg Q8HP PRN PO NAUSEA OR VOMITING Last administered on 04/24/17 09:05; Start 04/23/17 at 11:45; Stop 05/23/17 at 11:44 Sodium Biphosphate/ Sodium Phosphate (Fleet Enema) 1 ea DAILYPRN PRN [place] CONSTIPATION Last administered on 04/24/17 09:10; Start 04/20/17 at 12:45; Stop 05/20/17 at 12:44 Tramadol HCl (Ultram) 50 mg Q6HP PRN PO PAIN Last administered on 04/25/17 20: 12; Start 04/20/17 at 14:15; Stop 05/04/17 at 12:00 Vitamin D (Vitamin D) 1,000 units DAILY PO Last administered on 04/26/17 08:42 ; Start 04/21/17 at 09:00; Stop 05/21/17 at 08:59 RADHA JUDGE MD Apr 26, 2017 14:13
[2017-04-26] MEDS: MOM 30ML SUSPENSION UDC PO PRN (18:10)
[2017-04-26] MEDS: BISACODYL 5 MG TAB PO PRN (18:10)
[2017-04-26] MEDS: ATORVASTATIN 20 MG TAB PO SCH (20:00)
[2017-04-26] MEDS: traMADol 50 MG TAB PO PRN (20:01)
[2017-04-26 20:20] VITALS: BP 158/70
[2017-04-27 06:30] VITALS: BP 144/71
[2017-04-27] MEDS: LISINOPRIL 10 MG TAB PO SCH (08:59)
[2017-04-27] MEDS: ASPIRIN 81 MG ENTERIC TAB PO SCH (08:59)
[2017-04-27] MEDS: METOPROLOL TART 12.5 MG PER 1/2 TAB PO SCH ×2 (08:59→20:43)
[2017-04-27] MEDS: MOM 30ML SUSPENSION UDC PO PRN (08:59)
[2017-04-27] MEDS: VITAMIN D 1,000 INTERNATIONAL UNITS TABLET PO SCH (09:00)
[2017-04-27] MEDS: CLOPIDOGREL 75 MG TAB PO SCH (09:00)
[2017-04-27] MEDS: BISACODYL 5 MG TAB PO PRN (09:00)
[2017-04-27] MEDS: CLOTRIMAZOLE 1% VAG CR 45 GM TOP SCH ×2 (09:01→20:45)
[2017-04-27] MEDS: traMADol 50 MG TAB PO PRN (09:01)
--- NOTE | 2017-04-27 09:19 | IPNPDOC ---
Date Seen The patient was seen on 04/27/17. Progress Note HPI: 81year old F with a past medical history significant for Rt MCA CVA. Pt was brought to [facility] as per EMS after found on the floor at 3 AM the date of admission. She was not treated with thrombolytic. Pt with residual left sided weakness. She was felt stable to transfer to the care of Dr Oconnell [facility] on 04/20/17. Pt is a poor historian. Pt continues with chronic pain. She is sitting up in bed at this time. Denies any fevers, chills, weakness, fatigue, Headache, Chest Pain, Shortness of breath, cough, palpitations, abdominal pain, N/V/D or changes in bowel or bladder habits. 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 MRI Brain [facility] 04/17/17 acute infarct c/w Rt MCA, chronic microvascular disease. CTA head/neck ordered, I do not see copy of result at this time. H/O TIA HTN Vitamin D Def HLD OA/Chronic pain/leg pain/DJD EKG [facility] 04/17/17. SR 67 bpm. TTE [facility] 04/23. Nml EF, 69%, no wall motion abnormality. personality disorder edentulous PSHX: cholecystectomy ROS: As noted in HPI, otherwise 11pt ROS of systems reviewed and remarkable for chronic knee pain, RLE pain, RUE pain- wears brace at elbow. PE: GEN: 81yoF, appears stated age. Well-nourished, well developed. No acute distress. Alert and oriented x 3. Limited historian. Eyes closed throughout exam. HEENT: Normocephalic, atraumatic. Moist mucous membranes. trachea midline. No lymphadenopathy or thyromegaly appreciated. CHEST: Regular rate and rhythm, +S1, +S2 LUNGS: Clear to auscultation bilaterally. No wheezes, rales, or rhonchi. Breathing appears symmetric and easy. Patient is speaking in full sentences. No accessory muscle use. ABD: Round, soft, non-tender, non-distended. +Bowel sounds throughout. No rebound or guarding. No costovertebral angle tenderness. EXT: Pulses 2+ bilaterally dorsalis pedis and radial. No lower extremity edema appreciated. SKIN: [place], dry, warm. NEURO: Alert and oriented x 3. Left hemiparesis/hemineglect noted. A&P: 81year old F with a past medical history significant for Rt MCA CVA. Pt was brought to [facility] as per EMS after found on the floor at 3 AM the date of admission. She was not treated with thrombolytic. Pt with residual left sided weakness. She was felt stable to transfer to the care of Dr Oconnell [facility] on 04/20/17. 1. Pt is transferred from [facility] to ARU under the care of Dr Oconnell. Rt MCA CVA with left hemiparesis PT/OT/speech therapy as per ARU. Pain control as per ARU. Bowel care as per ARU. DVT prophylaxis as per ARU. Patient remains on Plavix 75 mg daily, aspirin 81 mg daily and Lipitor 10 mg daily. TTE done at [facility]. Requested copy of CTA head/neck report [facility], as per records it was ordered but I do not see result. Possibly consider Carotid U/S pending records. Records are still pending. 2. HTN. Continue lisinopril 10 mg daily and metoprolol 12.5 mg twice a day. Blood pressure is 118/57-144/73. Monitor. 3. Vitamin d deficiency. Continue supplement. Vitamin D level 34.1. 4. HLD. Continue Lipitor 10 mg daily. 5. Abnormal UA. Contaminated specimen. Urine culture negative 04/21/17. 6. Hypionatremia. resolved. BMP 04/28/17. Labs: none new. VS, I&O, 24H, Fishbone Vital Signs/I&O Vital Signs Date Time Temp Pulse Resp B/P (MAP) Pulse Ox O2 Delivery O2 Flow Rate FiO2 04/27/17 09:01 18 04/27/17 08:59 71 144/71 04/27/17 06:30 98.8 93 Room Air I&O- Last 24 Hours up to 6 AM 04/27/17 06:00 Intake Total 1200 ml Output Total 775 ml Balance 425 ml Laboratory Data Microbiology Microbiology 04/24/17 Eye/Ear/Nose/Throat Culture, Received Pending 04/23/17 Eye/Ear/Nose/Throat Culture - Final, Complete 04/22/17 MRSA Screen - Final, Complete 04/21/17 Urine Culture - Final, Complete 04/20/17 Urine Culture - Final, Complete Valentina Fisher Apr 27, 2017 09:19
--- NOTE | 2017-04-27 11:00 | IPNPDOC ---
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 Patient continues with lessening frequency to report chronic, constant pain in Right > Left body. Reports and family may not want her to come home. ALLERGIES: See Below MEDICATIONS: Reviewed, see below. OBJECTIVE: VITAL SIGNS: Please see below. PHYSICAL EXAMINATION: GENERAL: Obese, elderly white female with flattened affect, who appears to be in very mild to no acute distress though somewhat anxious at times. HEENT: Mild left facial droop but otherwise normocephalic/atraumatic. CARDIOVASCULAR: Regular rate and rhythm with normal S1-S2. LUNGS: All bro clear to auscultation. ABDOMEN: Obese with normal bowel sounds in all quadrants. NEUROLOGICAL: As above. Some strength seen in bed testing for exceeds functional strength. When patient is asked to do bed mobility or sitting on edge of bed or especially to try and stand and ambulate effort is improving, though function remains low. SKIN: Coccyx blister dressed. LABORATORY DATA: Reviewed. Please see below. MICROBIOLOGY: Please see below. IMAGING: No new imaging. DVT prophylaxis ordered?: Plavix and aspirin with DENNISE miranda. ASSESSMENT AND PLAN: 1. 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 We will trial standing frame as this should provide safe support and allow the patient to improve her tolerance for being vertical as well as work with her upper extremities unencumbered. Patient is easily discouraged I feel and needs to be supported in her successes. She keeps saying that her family does not want her to return home. Patient encouraged to work to make home a reality by increasing her independence. PT/OT to try tilt table vs other devices similar to a standing frame. 2. Chronic pain syndrome: We need to provide patient lots of structure and refocus her on with her many years her chronic pain, that she will continue to have pain whether or not she works. The structure appears to be working and we need to remain consistent to it as well as support patient with recognitions of the effort she does make. 3. Coccyx blister: We will try and keep patient out of incline positions rather to have her sit at greater than 80 upright or lay at less than 20 to avoid shear on her sacral region. We will also focus on trying to improve her protein nutrition. 4. 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 Dr. Pantoja's evaluation and recommendations are being looked forwarded to but not yet seen. Hopefully, a report and care plan are forthcoming soon. Patient at time feints sleep to avoid interactions with staff and myself. For now focus patient on being up and making home discharge about her wishes and work. 5. Hyponatremia: Will continue to observe with CMP tomorrow and BMP on with Na+ 134 on Tuesday and 137 Tuesday. 6. MRSA: Latest Nasal swab is negative. TIME SPENT: Chart Review, examination and documentation required greater than 25 minutes. Allergies Coded Allergies: Bee Venom (Verified Allergy, Unknown, 04/20/17) Contrast Media (Verified Allergy, Unknown, 04/20/17) Iodine (Unverified Allergy, Unknown, IODINE CONTRAST, 04/20/17) Penicillins (Verified Allergy, Unknown, 04/20/17) Shellfish Allergy (Unverified Allergy, Unknown, 04/20/17) Vital Signs Vital Signs Date Time Temp Pulse Resp B/P (MAP) Pulse Ox O2 Delivery O2 Flow Rate FiO2 04/27/17 09:31 20 04/27/17 08:59 71 144/71 04/27/17 08:00 Room Air 04/27/17 06:30 98.8 93 Microbiology Microbiology 04/24/17 Eye/Ear/Nose/Throat Culture - Final, Complete 04/23/17 Eye/Ear/Nose/Throat Culture - Final, Complete 04/22/17 MRSA Screen - Final, Complete 04/21/17 Urine Culture - Final, Complete 04/20/17 Urine Culture - Final, Complete Current Medications Current Medications Current Medications Acetaminophen (Tylenol Tab) 650 mg Q6HP PRN PO PAIN OR FEVER Last administered on 04/21/17 18:04; Start 04/20/17 at 12:45; Stop 05/20/17 at 12:44 Aspirin (Ecotrin) 81 mg DAILY PO Last administered on 04/27/17 08:59; Start at 09:00; Stop 05/21/17 at 08:59 Atorvastatin Calcium (Lipitor) 80 mg QPM PO Last administered on 04/26/17 20: 00; Start 04/20/17 at 21:00; Stop 05/20/17 at 20:59 Bisacodyl (Dulcolax Tab) 5 mg DAILYPRN PRN PO CONSTIPATION Last administered on 04/27/17 09:00; Start 04/20/17 at 12:45; Stop 05/20/17 at 12:44 Carbamide Perox/ Anhydrous Glycerin (Debrox) 5 drop Q12H AU Last administered on 04/25/17 20:12; Start 04/22/17 at 09:00; Stop 04/25/17 at 21:01; Status DC Clopidogrel Bisulfate (PLAVix) 75 mg DAILY PO Last administered on 04/27/17 09 :00; Start 04/21/17 at 09:00; Stop 05/21/17 at 08:59 Clotrimazole (Lotrimin 1% Vag) BID TOP Last administered on 04/27/17 09:01; Start 04/25/17 at 21:00; Stop 05/02/17 at 20:59 Home Med (Med Rec Complete!) ASDIRECTED XX ; Start 04/20/17 at 13:45; Stop at 13:46; Status DC Lisinopril (Prinivil) 10 mg DAILY PO Last administered on 04/27/17 08:59; Start 04/21/17 at 09:00; Stop 05/21/17 at 08:59 Magnesium Hydroxide (Milk Of Magnesia) 30 ml DAILYPRN PRN PO CONSTIPATION Last administered on 04/27/17 08:59; Start 04/20/17 at 12:45; Stop 05/20/17 at 12:44 Menthol/Methyl Salicylate (Bengay Cream) Apply topically to ri... QIDP PRN TOP Right Leg Pain Last administered on 04/24/17 19:52; Start 04/20/17 at 14:15; Stop 05/20/17 at 14:14 Metoprolol Tartrate (Lopressor) 12.5 mg BID PO Last administered on 04/27/17 08:59; Start 04/20/17 at 21:00; Stop 05/20/17 at 20:59 Ondansetron HCl (Zofran) 4 mg Q8HP PRN PO NAUSEA OR VOMITING Last administered on 04/24/17 09:05; Start 04/23/17 at 11:45; Stop 04/27/17 at 08:11; Status DC Sodium Biphosphate/ Sodium Phosphate (Fleet Enema) 1 ea DAILYPRN PRN [place] CONSTIPATION Last administered on 04/24/17 09:10; Start 04/20/17 at 12:45; Stop 05/20/17 at 12:44 Tramadol HCl (Ultram) 50 mg Q6HP PRN PO PAIN Last administered on 04/27/17 09: 01; Start 04/20/17 at 14:15; Stop 05/04/17 at 12:00 Vitamin D (Vitamin D) 1,000 units DAILY PO Last administered on 04/27/17 09:00 ; Start 04/21/17 at 09:00; Stop 05/21/17 at 08:59 RADHA JUDGE MD Apr 27, 2017 11:00
[2017-04-27 14:00] VITALS: BP 148/80
[2017-04-27 20:00] VITALS: BP 117/55
[2017-04-27] MEDS: ATORVASTATIN 20 MG TAB PO SCH (20:44)
[2017-04-27] MEDS: ANALGESIC BALM CRM 120 GM TOP PRN (21:00)
[2017-04-28 06:00] VITALS: BP 128/64
[2017-04-28 07:24] LABS: MEAN CORPUSCULAR HEMOGLOBIN 32.1 pg (27.0-33.0); MEAN CORPUSCULAR HGB CONC 34.5 g/dl (32.0-36.5); RED CELL DISTRIBUTION WIDTH 12.9 % (11.5-14.5); WHITE BLOOD COUNT 9.1 K/mm3 (4.0-10.0)
[2017-04-28 07:35] LABS: ANION GAP 5 MEQ/L (8-16); BLOOD UREA NITROGEN 20 MG/DL (7-18); CALCIUM LEVEL 8.6 MG/DL (8.8-10.2); CARBON DIOXIDE LEVEL 28 MEQ/L (21-32); CHLORIDE LEVEL 101 MEQ/L (98-107); GLOMERULAR FILTRATION RATE > 60.0 (>39); GLUCOSE, FASTING 102 MG/DL (83-110); POTASSIUM SERUM 4.6 MEQ/L (3.5-5.1); SODIUM LEVEL 134 MEQ/L (136-145)
[2017-04-28] MEDS: CLOPIDOGREL 75 MG TAB PO SCH (09:43)
[2017-04-28] MEDS: METOPROLOL TART 12.5 MG PER 1/2 TAB PO SCH ×2 (09:43→21:17)
[2017-04-28] MEDS: LISINOPRIL 10 MG TAB PO SCH (09:43)
[2017-04-28] MEDS: ASPIRIN 81 MG ENTERIC TAB PO SCH (09:44)
[2017-04-28] MEDS: VITAMIN D 1,000 INTERNATIONAL UNITS TABLET PO SCH (09:44)
[2017-04-28] MEDS: ANALGESIC BALM CRM 120 GM TOP PRN (09:45)
[2017-04-28] MEDS: CLOTRIMAZOLE 1% VAG CR 45 GM TOP SCH ×2 (09:46→21:18)
--- NOTE | 2017-04-28 10:04 | IPNPDOC ---
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 Still reports and family may not want her to come home. Reports ongoing right body pain including pectoral and left knee/leg pain. No cardiac symptoms reported. ALLERGIES: See Below MEDICATIONS: Reviewed, see below. OBJECTIVE: VITAL SIGNS: Please see below. PHYSICAL EXAMINATION: GENERAL: Obese, elderly white female with flattened affect, who appears to be in very mild to no acute distress though somewhat anxious at times. HEENT: Mild left facial droop but otherwise normocephalic/atraumatic. CARDIOVASCULAR: Regular rate and rhythm with normal S1-S2. 2/4 bilateral Radial Pulses. LUNGS: All bro clear to auscultation. ABDOMEN: Obese with normal bowel sounds in all quadrants. NEUROLOGICAL: As above. Some strength seen in bed testing for exceeds functional strength. When patient is asked to do bed mobility or sitting on edge of bed or especially to try and stand and ambulate effort is improving, though function remains low. SKIN: Coccyx blister dressed. LABORATORY DATA: Reviewed. Please see below. MICROBIOLOGY: Please see below. IMAGING: No new imaging. DVT prophylaxis ordered?: Plavix and aspirin with DENNISE miranda. ASSESSMENT AND PLAN: 1. 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 We will trial standing frame as this should provide safe support and allow the patient to improve her tolerance for being vertical as well as work with her upper extremities unencumbered. Patient is easily discouraged I feel and needs to be supported in her successes. She keeps saying that her family does not want her to return home. Patient encouraged to work to make home a reality by increasing her independence. PT/OT to try tilt table vs other devices similar to a standing frame. Rehab. Team Rounds: Patient has trouble with effort and tolerance for acute intensive rehabilitation and may benefit more from Subacute level of care. Will continue trial of Acute Intensive Rehab. but need to see more progress than currently achieving. 2. Chronic pain syndrome: We need to provide patient lots of structure and refocus her on with her many years her chronic pain, that she will continue to have pain whether or not she works. The structure appears to be working and we need to remain consistent to it as well as support patient with recognitions of the effort she does make.Will try Bengay to both knees and leg and right chest. 3. Coccyx blister: We will try and keep patient out of incline positions rather to have her sit at greater than 80 upright or lay at less than 20 to avoid shear on her sacral region. We will also focus on trying to improve her protein nutrition. 4. 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 Dr. Pantoja's evaluation and recommendations are being looked forwarded to but not yet seen. Hopefully, a report and care plan are forthcoming soon. Patient at time feints sleep to avoid interactions with staff and myself. For now focus patient on being up and making home discharge about her wishes and work. 5. Hyponatremia: Na+ 134 again. May need to fluid restrict. 6. MRSA: Latest Nasal swab is negative. Need to complete trial of 3 weekly checks to clear. TIME SPENT: Chart Review, examination and documentation required greater than 25 minutes. Allergies Coded Allergies: Bee Venom (Verified Allergy, Unknown, 04/20/17) Contrast Media (Verified Allergy, Unknown, 04/20/17) Iodine (Unverified Allergy, Unknown, IODINE CONTRAST, 04/20/17) Penicillins (Verified Allergy, Unknown, 04/20/17) Shellfish Allergy (Unverified Allergy, Unknown, 04/20/17) Vital Signs Vital Signs Date Time Temp Pulse Resp B/P (MAP) Pulse Ox O2 Delivery O2 Flow Rate FiO2 04/28/17 09:43 72 140/64 04/28/17 06:00 97.6 18 96 Room Air Laboratory Data CBC/BMP Laboratory Tests 04/28/17 06:48 Red Blood Count 4.13, Mean Corpuscular Volume 93.0, Mean Corpuscular Hemoglobin 32.1, Mean Corpuscular Hemoglobin Concent 34.5, Red Cell Distribution Width 12.9 , Calcium Level 8.6 L Labs 24H Laboratory Tests 2 04/28/17 06:01: Urine Appearance CLEAR, Urine Color YELLOW, Urine pH 5.0, Urine Specific [place] 1.000L, Urine Protein NEGATIVE, Urine Glucose (UA) NEGATIVE, Urine Ketones NEGATIVE, Urine Urobilinogen 0.2, Urine Bilirubin NEGATIVE, Urine Leukocyte Esterase NEGATIVE, Urine Blood NEGATIVE, Urine Nitrite NEGATIVE, Urine WBC (Auto) 0, Urine RBC (Auto) 0, Urine Hyaline Casts (Auto) 0, Urine Bacteria (Auto) NEGATIVE, Urine Squamous Epithelial Cells 0, Urine Sperm (Auto) 04/28/17 06:48: Anion Gap 5L, Glomerular Filtration Rate > 60.0, Blood Urea Nitrogen 20H, Creatinine 0.70, Sodium Level 134L, Potassium Level 4.6, Chloride Level 101, Carbon Dioxide Level 28, Calcium Level 8.6L Microbiology Microbiology 04/24/17 Eye/Ear/Nose/Throat Culture - Final, Complete 04/23/17 Eye/Ear/Nose/Throat Culture - Final, Complete 04/22/17 MRSA Screen - Final, Complete 04/21/17 Urine Culture - Final, Complete 04/20/17 Urine Culture - Final, Complete Current Medications Current Medications Current Medications Acetaminophen (Tylenol Tab) 650 mg Q6HP PRN PO PAIN OR FEVER Last administered on 04/21/17 18:04; Start 04/20/17 at 12:45; Stop 05/20/17 at 12:44 Aspirin (Ecotrin) 81 mg DAILY PO Last administered on 04/28/17 09:44; Start at 09:00; Stop 05/21/17 at 08:59 Atorvastatin Calcium (Lipitor) 80 mg QPM PO Last administered on 04/27/17 20: 44; Start 04/20/17 at 21:00; Stop 05/20/17 at 20:59 Bisacodyl (Dulcolax Tab) 5 mg DAILYPRN PRN PO CONSTIPATION Last administered on 04/27/17 09:00; Start 04/20/17 at 12:45; Stop 05/20/17 at 12:44 Carbamide Perox/ Anhydrous Glycerin (Debrox) 5 drop Q12H AU Last administered on 04/25/17 20:12; Start 04/22/17 at 09:00; Stop 04/25/17 at 21:01; Status DC Clopidogrel Bisulfate (PLAVix) 75 mg DAILY PO Last administered on 04/28/17 09 :43; Start 04/21/17 at 09:00; Stop 05/21/17 at 08:59 Clotrimazole (Lotrimin 1% Vag) BID TOP Last administered on 04/28/17 09:46; Start 04/25/17 at 21:00; Stop 05/10/17 at 23:55 Home Med (Med Rec Complete!) ASDIRECTED XX ; Start 04/20/17 at 13:45; Stop at 13:46; Status DC Lisinopril (Prinivil) 10 mg DAILY PO Last administered on 04/28/17 09:43; Start 04/21/17 at 09:00; Stop 05/21/17 at 08:59 Magnesium Hydroxide (Milk Of Magnesia) 30 ml DAILYPRN PRN PO CONSTIPATION Last administered on 04/27/17 08:59; Start 04/20/17 at 12:45; Stop 05/20/17 at 12:44 Menthol/Methyl Salicylate (Bengay Cream) Apply topically to ri... QIDP PRN TOP Right Leg Pain Last administered on 04/28/17 09:45; Start 04/20/17 at 14:15; Stop 05/20/17 at 14:14 Metoprolol Tartrate (Lopressor) 12.5 mg BID PO Last administered on 04/28/17 09:43; Start 04/20/17 at 21:00; Stop 05/20/17 at 20:59 Ondansetron HCl (Zofran) 4 mg Q8HP PRN PO NAUSEA OR VOMITING Last administered on 04/24/17 09:05; Start 04/23/17 at 11:45; Stop 04/27/17 at 08:11; Status DC Sodium Biphosphate/ Sodium Phosphate (Fleet Enema) 1 ea DAILYPRN PRN [place] CONSTIPATION Last administered on 04/24/17 09:10; Start 04/20/17 at 12:45; Stop 05/20/17 at 12:44 Tramadol HCl (Ultram) 50 mg Q6HP PRN PO PAIN Last administered on 04/27/17 09: 01; Start 04/20/17 at 14:15; Stop 05/04/17 at 12:00 Vitamin D (Vitamin D) 1,000 units DAILY PO Last administered on 04/28/17 09:44 ; Start 04/21/17 at 09:00; Stop 05/21/17 at 08:59 RADHA JUDGE MD Apr 28, 2017 10:04
[2017-04-28] MEDS: traMADol 50 MG TAB PO PRN (11:06)
--- NOTE | 2017-04-28 12:54 | IPNPDOC ---
Date Seen The patient was seen on 04/28/17. Progress Note HPI: 81year old F with a past medical history significant for Rt MCA CVA. Pt was brought to [facility] as per EMS after found on the floor at 3 AM the date of admission. She was not treated with thrombolytic. Pt with residual left sided weakness. She was felt stable to transfer to the care of Dr Oconnell [facility] on 04/20/17. Pt is a poor historian. Pt continues with chronic pain. She is sitting up in bed at this time. Just finished a shower. Denies any fevers, chills, weakness, fatigue, Headache, Chest Pain, Shortness of breath, cough, palpitations, abdominal pain, N/V/D or changes in bowel or bladder habits. 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 MRI Brain [facility] 04/17/17 acute infarct c/w Rt MCA, chronic microvascular disease. CTA head/neck ordered, I do not see copy of result at this time. H/O TIA HTN Vitamin D Def HLD OA/Chronic pain/leg pain/DJD EKG [facility] 04/17/17. SR 67 bpm. TTE [facility] 04/23. Nml EF, 69%, no wall motion abnormality. personality disorder edentulous PSHX: cholecystectomy ROS: As noted in HPI, otherwise 11pt ROS of systems reviewed and remarkable for chronic knee pain, RLE pain, RUE pain- wears brace at elbow. PE: GEN: 81yoF, appears stated age. Well-nourished, well developed. No acute distress. Alert and oriented x 3. Limited historian. Eyes closed throughout exam. HEENT: Normocephalic, atraumatic. Moist mucous membranes. trachea midline. No lymphadenopathy or thyromegaly appreciated. CHEST: Regular rate and rhythm, +S1, +S2 LUNGS: Clear to auscultation bilaterally. No wheezes, rales, or rhonchi. Breathing appears symmetric and easy. Patient is speaking in full sentences. No accessory muscle use. ABD: Round, soft, non-tender, non-distended. +Bowel sounds throughout. No rebound or guarding. No costovertebral angle tenderness. EXT: Pulses 2+ bilaterally dorsalis pedis and radial. No lower extremity edema appreciated. SKIN: [place], dry, warm. NEURO: Alert and oriented x 3. Left hemiparesis/hemineglect noted. A&P: 81year old F with a past medical history significant for Rt MCA CVA. Pt was brought to [facility] as per EMS after found on the floor at 3 AM the date of admission. She was not treated with thrombolytic. Pt with residual left sided weakness. She was felt stable to transfer to the care of Dr Oconnell [facility] on 04/20/17. 1. Pt is transferred from [facility] to ARU under the care of Dr Oconnell. Rt MCA CVA with left hemiparesis PT/OT/speech therapy as per ARU. Pain control as per ARU. Bowel care as per ARU. DVT prophylaxis as per ARU. Patient remains on Plavix 75 mg daily, aspirin 81 mg daily and Lipitor 10 mg daily. TTE done at [facility]. Requested copy of CTA head/neck report [facility], as per records it was ordered but I do not have a result available. Consider Carotid U/S. 2. HTN. Continue lisinopril 10 mg daily and metoprolol 12.5 mg twice a day. Blood pressure is 118/57-144/73. Monitor. 3. Vitamin d deficiency. Continue supplement. Vitamin D level 34.1. 4. HLD. Continue Lipitor 10 mg daily. 5. Abnormal UA. Contaminated specimen. Urine culture negative 04/21/17. 6. Hyponatremia. trend 134-137. BMP 04/29/17. VS, I&O, 24H, Fishbone Vital Signs/I&O Vital Signs Date Time Temp Pulse Resp B/P (MAP) Pulse Ox O2 Delivery O2 Flow Rate FiO2 04/28/17 11:06 18 04/28/17 09:45 Room Air 04/28/17 09:43 72 140/64 04/28/17 06:00 97.6 96 I&O- Last 24 Hours up to 6 AM 04/28/17 06:00 Intake Total 920 ml Output Total 650 ml Balance 270 ml Laboratory Data 24H LABS Laboratory Tests 2 04/28/17 06:01: Urine Appearance CLEAR, Urine Color YELLOW, Urine pH 5.0, Urine Specific [place] 1.000L, Urine Protein NEGATIVE, Urine Glucose (UA) NEGATIVE, Urine Ketones NEGATIVE, Urine Urobilinogen 0.2, Urine Bilirubin NEGATIVE, Urine Leukocyte Esterase NEGATIVE, Urine Blood NEGATIVE, Urine Nitrite NEGATIVE, Urine WBC (Auto) 0, Urine RBC (Auto) 0, Urine Hyaline Casts (Auto) 0, Urine Bacteria (Auto) NEGATIVE, Urine Squamous Epithelial Cells 0, Urine Sperm (Auto) 04/28/17 06:48: Anion Gap 5L, Glomerular Filtration Rate > 60.0, Blood Urea Nitrogen 20H, Creatinine 0.70, Sodium Level 134L, Potassium Level 4.6, Chloride Level 101, Carbon Dioxide Level 28, Calcium Level 8.6L CBC/BMP Laboratory Tests 04/28/17 06:48 Red Blood Count 4.13, Mean Corpuscular Volume 93.0, Mean Corpuscular Hemoglobin 32.1, Mean Corpuscular Hemoglobin Concent 34.5, Red Cell Distribution Width 12.9 , Calcium Level 8.6 L Microbiology Microbiology 04/24/17 Eye/Ear/Nose/Throat Culture - Final, Complete 04/23/17 Eye/Ear/Nose/Throat Culture - Final, Complete 04/22/17 MRSA Screen - Final, Complete 04/21/17 Urine Culture - Final, Complete 04/20/17 Urine Culture - Final, Complete Valentina Fisher Apr 28, 2017 12:54
[2017-04-28 14:00] VITALS: BP 131/73
[2017-04-28] MEDS: FLEET ENEMA PR PRN (16:00)
[2017-04-28 19:49] VITALS: BP 116/67
[2017-04-28] MEDS: ATORVASTATIN 20 MG TAB PO SCH (21:17)
[2017-04-29 05:09] VITALS: BP 137/63
[2017-04-29 07:43] LABS: ANION GAP 8 MEQ/L (8-16); BLOOD UREA NITROGEN 20 MG/DL (7-18); CALCIUM LEVEL 8.4 MG/DL (8.8-10.2); CARBON DIOXIDE LEVEL 27 MEQ/L (21-32); CHLORIDE LEVEL 101 MEQ/L (98-107); CREATININE FOR GFR 0.69 MG/DL (0.55-1.02); GLOMERULAR FILTRATION RATE > 60.0 (>39); GLUCOSE, FASTING 110 MG/DL (83-110); POTASSIUM SERUM 4.6 MEQ/L (3.5-5.1); SODIUM LEVEL 136 MEQ/L (136-145)
[2017-04-29] MEDS: ANALGESIC BALM CRM 120 GM TOP PRN (08:51)
[2017-04-29] MEDS: CLOTRIMAZOLE 1% VAG CR 45 GM TOP SCH ×2 (08:52→20:31)
[2017-04-29] MEDS: ASPIRIN 81 MG ENTERIC TAB PO SCH (08:55)
[2017-04-29] MEDS: traMADol 50 MG TAB PO PRN ×2 (08:55→20:31)
[2017-04-29] MEDS: VITAMIN D 1,000 INTERNATIONAL UNITS TABLET PO SCH (08:56)
[2017-04-29] MEDS: CLOPIDOGREL 75 MG TAB PO SCH (08:56)
[2017-04-29] MEDS: BISACODYL 5 MG TAB PO PRN (08:56)
[2017-04-29] MEDS: LISINOPRIL 10 MG TAB PO SCH (08:59)
[2017-04-29] MEDS: METOPROLOL TART 12.5 MG PER 1/2 TAB PO SCH ×2 (09:00→20:30)
[2017-04-29] MEDS: FLEET ENEMA PR PRN (11:23)
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
[2017-04-29 13:56] VITALS: BP 146/66
[2017-04-29 20:00] VITALS: BP 142/70
[2017-04-29] MEDS: ATORVASTATIN 20 MG TAB PO SCH (20:30)
[2017-04-30 06:00] VITALS: BP 125/58
[2017-04-30] MEDS: VITAMIN D 1,000 INTERNATIONAL UNITS TABLET PO SCH (08:13)
[2017-04-30] MEDS: ASPIRIN 81 MG ENTERIC TAB PO SCH (08:13)
[2017-04-30] MEDS: BISACODYL 5 MG TAB PO PRN (08:13)
[2017-04-30] MEDS: LISINOPRIL 10 MG TAB PO SCH (08:13)
[2017-04-30] MEDS: CLOTRIMAZOLE 1% VAG CR 45 GM TOP SCH ×2 (08:14→21:31)
[2017-04-30] MEDS: CLOPIDOGREL 75 MG TAB PO SCH (08:14)
[2017-04-30] MEDS: METOPROLOL TART 12.5 MG PER 1/2 TAB PO SCH ×2 (08:14→21:26)
[2017-04-30] MEDS: traMADol 50 MG TAB PO PRN ×2 (09:48→21:26)
[2017-04-30 14:00] VITALS: BP 118/57
[2017-04-30 20:00] VITALS: BP 144/70
[2017-04-30] MEDS: ATORVASTATIN 20 MG TAB PO SCH (21:25)
[2017-04-30] MEDS: ANALGESIC BALM CRM 120 GM TOP PRN (21:31)
[2017-05-01 06:00] VITALS: BP 158/90
[2017-05-01 06:44] LABS: BASO # 0.1 K/mm3 (0.0-0.2); BASO % 0.7 % (0.0-1.0); EOS # 0.1 K/mm3 (0.0-0.50); LARGE UNSTAINED CELL # 0.1 K/mm3 (0.0-0.4); LARGE UNSTAINED CELL % 1.3 % (0.0-4.0); LYMPH # 1.5 K/mm3 (1.5-4.5); LYMPH % 14.5 % (24.0-44.0); MEAN CORPUSCULAR HEMOGLOBIN 32.5 pg (27.0-33.0); MEAN CORPUSCULAR HGB CONC 34.8 g/dl (32.0-36.5); MEAN CORPUSCULAR VOLUME 93.3 fl (80.0-96.0); MONO # 0.6 K/mm3 (0.0-0.8); MONO % 5.4 % (0.0-5.0); NEUTROPHILS # 7.8 K/mm3 (1.8-7.7); NEUTROPHILS % 77.1 % (36.0-66.0); PLATELET COUNT, AUTOMATED 341 k/mm3 (150-450); RED CELL DISTRIBUTION WIDTH 12.6 % (11.5-14.5); WHITE BLOOD COUNT 10.1 K/mm3 (4.0-10.0)
[2017-05-01 07:14] LABS: ALBUMIN 2.9 GM/DL (3.2-5.2); ALBUMIN/GLOBULIN RATIO 0.71 (1.00-1.93); ALKALINE PHOSPHATASE 79 U/L (45-117); ALT/SGPT 28 U/L (12-78); ANION GAP 6 MEQ/L (8-16); AST/SGOT 25 U/L (15-37); BLOOD UREA NITROGEN 34 MG/DL (7-18); CALCIUM LEVEL 8.8 MG/DL (8.8-10.2); CARBON DIOXIDE LEVEL 29 MEQ/L (21-32); CHLORIDE LEVEL 102 MEQ/L (98-107); CREATININE FOR GFR 0.83 MG/DL (0.55-1.02); GLOMERULAR FILTRATION RATE > 60.0 (>39); GLUCOSE, FASTING 99 MG/DL (83-110); MAGNESIUM LEVEL 2.6 MG/DL (1.8-2.4); POTASSIUM SERUM 4.9 MEQ/L (3.5-5.1); SODIUM LEVEL 137 MEQ/L (136-145)
[2017-05-01] MEDS: VITAMIN D 1,000 INTERNATIONAL UNITS TABLET PO SCH (08:46)
[2017-05-01] MEDS: CLOPIDOGREL 75 MG TAB PO SCH (08:46)
[2017-05-01] MEDS: METOPROLOL TART 12.5 MG PER 1/2 TAB PO SCH ×2 (08:46→21:21)
[2017-05-01] MEDS: ASPIRIN 81 MG ENTERIC TAB PO SCH (08:47)
[2017-05-01] MEDS: BISACODYL 10 MG SUPP PR SCH (08:47)
[2017-05-01] MEDS: traMADol 50 MG TAB PO PRN (08:47)
[2017-05-01] MEDS: LISINOPRIL 10 MG TAB PO SCH (08:47)
[2017-05-01] MEDS: CLOTRIMAZOLE 1% VAG CR 45 GM TOP SCH ×2 (08:48→21:21)
[2017-05-01] MEDS: MOM 30ML SUSPENSION UDC PO PRN (08:48)
[2017-05-01 14:00] VITALS: BP 135/73
[2017-05-01 20:00] VITALS: BP 137/72
[2017-05-01] MEDS: ATORVASTATIN 20 MG TAB PO SCH (21:18)
[2017-05-01] MEDS: ANALGESIC BALM CRM 120 GM TOP PRN (21:24)
[2017-05-02 06:00] VITALS: BP 143/62
[2017-05-02] MEDS: CLOPIDOGREL 75 MG TAB PO SCH (08:44)
[2017-05-02] MEDS: VITAMIN D 1,000 INTERNATIONAL UNITS TABLET PO SCH (08:44)
[2017-05-02] MEDS: METOPROLOL TART 12.5 MG PER 1/2 TAB PO SCH ×2 (08:44→20:29)
[2017-05-02] MEDS: LISINOPRIL 10 MG TAB PO SCH (08:45)
[2017-05-02] MEDS: CLOTRIMAZOLE 1% VAG CR 45 GM TOP SCH ×2 (08:45→20:30)
[2017-05-02] MEDS: ASPIRIN 81 MG ENTERIC TAB PO SCH (08:45)
--- NOTE | 2017-05-02 09:52 | IPNPDOC ---
Date Seen The patient was seen on 05/02/17. Progress Note HPI: 81year old F with a past medical history significant for Rt MCA CVA. Pt was brought to [facility] as per EMS after found on the floor at 3 AM the date of admission. She was not treated with thrombolytic. Pt with residual left sided weakness. She was felt stable to transfer to the care of Dr [facility]connell [facility]. Pt is a poor historian. Pt continues with chronic pain. She is sitting up in bed at this time. Answers few questions. Pt currently eating breakfast. Denies any fevers, chills, weakness, fatigue, Headache, Chest Pain, Shortness of breath, cough, palpitations, abdominal pain, N/V/D or changes in bowel or bladder habits. 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 MRI Brain [facility] 04/17/17 acute infarct c/w Rt MCA, chronic microvascular disease. CTA head/neck ordered, I do not see copy of result at this time. H/O TIA HTN Vitamin D Def HLD OA/Chronic pain/leg pain/DJD EKG [facility] 04/17/17. SR 67 bpm. TTE [facility] 04/23. Nml EF, 69%, no wall motion abnormality. personality disorder edentulous PSHX: cholecystectomy ROS: As noted in HPI, otherwise 11pt ROS of systems reviewed and remarkable for chronic knee pain, RLE pain, RUE pain- wears brace at elbow. PE: GEN: 81yoF, appears stated age. Well-nourished, well developed. No acute distress. Alert and oriented x 3. Limited historian. Eyes are closed throughout exam. HEENT: Normocephalic, atraumatic. Moist mucous membranes. trachea midline. No lymphadenopathy or thyromegaly appreciated. CHEST: Regular rate and rhythm, +S1, +S2 LUNGS: Clear to auscultation bilaterally. No wheezes, rales, or rhonchi. Breathing appears symmetric and easy. Patient is speaking in full sentences. No accessory muscle use. ABD: Round, soft, non-tender, non-distended. +Bowel sounds throughout. No rebound or guarding. No costovertebral angle tenderness. EXT: Pulses 2+ bilaterally dorsalis pedis and radial. No lower extremity edema appreciated. SKIN: [place], dry, warm. NEURO: Alert and oriented x 3. Left hemiparesis/hemineglect noted. A&P: 81year old F with a past medical history significant for Rt MCA CVA. Pt was brought to [facility] as per EMS after found on the floor at 3 AM the date of admission. She was not treated with thrombolytic. Pt with residual left sided weakness. She was felt stable to transfer to the care of Dr Oconnell [facility] on 04/20/17. 1. Pt is transferred from [facility] to ARU under the care of Dr Oconnell. Rt MCA CVA with left hemiparesis PT/OT/speech therapy as per ARU. Pain control as per ARU. Bowel care as per ARU. DVT prophylaxis as per ARU. Patient remains on Plavix 75 mg daily, aspirin 81 mg daily and Lipitor 10 mg daily. TTE done at [facility]. Requested copy of CTA head/neck report [facility], as per records it was ordered but I do not have a result available. Consider Carotid U/S. 2. HTN. Continue lisinopril 10 mg daily and metoprolol 12.5 mg twice a day. Blood pressure is SBP 128-143. Monitor. 3. Vitamin d deficiency. Continue supplement. Vitamin D level 34.1. 4. HLD. Continue Lipitor 10 mg daily. 5. Mild leukocytosis labs 05/01/17. Urine culture negative 04/21/17. CBC/UC requested. 6. Hyponatremia. Na 137 labs 05/01/17. Monitor. 7. Hypermagnesemia labs 05/01/17. Pt is not taking any supplements. MOM d/cd. Recheck Mag level/CMP. VS, I&O, 24H, Fishbone Vital Signs/I&O Vital Signs Date Time Temp Pulse Resp B/P (MAP) Pulse Ox O2 Delivery O2 Flow Rate FiO2 05/02/17 08:45 143/62 05/02/17 08:44 75 05/02/17 08:00 Room Air 05/02/17 06:00 98.0 18 95 I&O- Last 24 Hours up to 6 AM 05/02/17 06:00 Intake Total 420 ml Output Total 250 ml Balance 170 ml Laboratory Data Microbiology Microbiology 04/24/17 Eye/Ear/Nose/Throat Culture - Final, Complete 04/23/17 Eye/Ear/Nose/Throat Culture - Final, Complete 04/22/17 MRSA Screen - Final, Complete Valentina Fisher May 02, 2017 09:52 MARIAH PARDO MD May 02, 2017 18:12
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
[2017-05-02 10:39] LABS: MEAN CORPUSCULAR HEMOGLOBIN 32.5 pg (27.0-33.0); MEAN CORPUSCULAR HGB CONC 34.5 g/dl (32.0-36.5); RED CELL DISTRIBUTION WIDTH 12.7 % (11.5-14.5); WHITE BLOOD COUNT 17.2 K/mm3 (4.0-10.0)
[2017-05-02 11:02] LABS: ALBUMIN 2.9 GM/DL (3.2-5.2); ALBUMIN/GLOBULIN RATIO 0.74 (1.00-1.93); ALKALINE PHOSPHATASE 85 U/L (45-117); ALT/SGPT 26 U/L (12-78); ANION GAP 5 MEQ/L (8-16); AST/SGOT 23 U/L (15-37); BILIRUBIN,TOTAL 0.9 MG/DL (0.2-1.0); BLOOD UREA NITROGEN 46 MG/DL (7-18); CALCIUM LEVEL 8.7 MG/DL (8.8-10.2); CARBON DIOXIDE LEVEL 29 MEQ/L (21-32); CHLORIDE LEVEL 101 MEQ/L (98-107); CREATININE FOR GFR 0.93 MG/DL (0.55-1.02); GLOMERULAR FILTRATION RATE > 60.0 (>39); GLUCOSE, FASTING 130 MG/DL (83-110); SODIUM LEVEL 135 MEQ/L (136-145); TOTAL PROTEIN 6.8 GM/DL (6.4-8.2)
[2017-05-02 14:00] VITALS: BP 127/66
[2017-05-02 15:11] LABS: T UPTAKE 42 % (30-39)
[2017-05-02 18:37] LABS: MICROSCOPIC INDICATED? MAN YES (NO)
[2017-05-02 20:00] VITALS: BP 150/72
[2017-05-02] MEDS: ATORVASTATIN 20 MG TAB PO SCH (20:30)
[2017-05-02 20:31] LABS: BACTERIA, URINE LARGE AMOUNT; RBC, URINE TNTC /hpf (0-3); SQUAMOUS EPITHELIAL CELL URINE LARGE AMOUNT /hpf (SMALL AMT); TRANSITIONAL EPI CELLS, URINE LARGE AMOUNT /hpf; WBC, URINE TNTC /hpf (0-3)
[2017-05-02 20:32] LABS: HYALINE CAST, URINE NONE SEEN /lpf (0-1); MICROSCOPIC EXAM PERFORMED
[2017-05-03 05:57] VITALS: BP 161/74
[2017-05-03 07:49] LABS: MEAN CORPUSCULAR VOLUME 94.1 fl (80.0-96.0); RED CELL DISTRIBUTION WIDTH 12.9 % (11.5-14.5); WHITE BLOOD COUNT 11.7 K/mm3 (4.0-10.0)
[2017-05-03 08:21] LABS: ALBUMIN 2.8 GM/DL (3.2-5.2); ALBUMIN/GLOBULIN RATIO 0.65 (1.00-1.93); ALKALINE PHOSPHATASE 80 U/L (45-117); ALT/SGPT 25 U/L (12-78); ANION GAP 7 MEQ/L (8-16); AST/SGOT 26 U/L (15-37); BLOOD UREA NITROGEN 51 MG/DL (7-18); CARBON DIOXIDE LEVEL 27 MEQ/L (21-32); CHLORIDE LEVEL 99 MEQ/L (98-107); CREATININE FOR GFR 0.84 MG/DL (0.55-1.02); GLOMERULAR FILTRATION RATE > 60.0 (>39); GLUCOSE, FASTING 106 MG/DL (83-110); MAGNESIUM LEVEL 2.7 MG/DL (1.8-2.4); POTASSIUM SERUM 4.6 MEQ/L (3.5-5.1); SODIUM LEVEL 133 MEQ/L (136-145); TOTAL PROTEIN 7.1 GM/DL (6.4-8.2)
[2017-05-03] MEDS: LISINOPRIL 10 MG TAB PO SCH (09:08)
[2017-05-03] MEDS: ASPIRIN 81 MG ENTERIC TAB PO SCH (09:08)
[2017-05-03] MEDS: VITAMIN D 1,000 INTERNATIONAL UNITS TABLET PO SCH (09:08)
[2017-05-03] MEDS: METOPROLOL TART 12.5 MG PER 1/2 TAB PO SCH ×2 (09:08→20:40)
[2017-05-03] MEDS: CLOPIDOGREL 75 MG TAB PO SCH (09:08)
[2017-05-03] MEDS: BISACODYL 10 MG SUPP PR SCH (09:09)
[2017-05-03] MEDS: CLOTRIMAZOLE 1% VAG CR 45 GM TOP SCH (09:10)
[2017-05-03] MEDS ORDERED: NS 1,000 ML IV ONE (10:00)
--- NOTE | 2017-05-03 11:25 | IPNPDOC ---
Date Seen The patient was seen on 05/03/17. Progress Note HPI: 81year old F with a past medical history significant for Rt MCA CVA. Pt was brought to [facility] as per EMS after found on the floor at 3 AM the date of admission. She was not treated with thrombolytic. Pt with residual left sided weakness. She was felt stable to transfer to the care of Dr Oconnell [facility] on 04/20/17. The Pt is a poor historian. She frequently closes her eyes and does not participate with history. She is sitting up in bed at this time with Speech therapy. She apparently has had poor po intake but is currently observed drinking water. Denies any fevers, chills, weakness, fatigue, Headache, Chest Pain, Shortness of breath, cough, palpitations, abdominal pain, N/V/D or changes in bowel or bladder habits. 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 MRI Brain [facility] 04/17/17 acute infarct c/w Rt MCA, chronic microvascular disease. CTA head/neck ordered, I do not see copy of result at this time. H/O TIA HTN Vitamin D Def HLD OA/Chronic pain/leg pain/DJD EKG [facility] 04/17/17. SR 67 bpm. TTE [facility] 04/23. Nml EF, 69%, no wall motion abnormality. personality disorder edentulous PSHX: cholecystectomy ROS: As noted in HPI, otherwise 11pt ROS of systems reviewed and remarkable for chronic knee pain, RLE pain, RUE pain- wears brace at elbow. PE: GEN: 81yoF, appears stated age. No acute distress. Alert and oriented x 3. Limited historian. Eyes are closed intermittently throughout exam. HEENT: Normocephalic, atraumatic. Moist mucous membranes. trachea midline. No lymphadenopathy or thyromegaly appreciated. CHEST: Regular rate and rhythm, +S1, +S2 LUNGS: Clear to auscultation bilaterally. No wheezes, rales, or rhonchi. Breathing appears symmetric and easy. Patient is speaking in full sentences. No accessory muscle use. ABD: Round, soft, non-tender, non-distended. +Bowel sounds throughout. No rebound or guarding. No costovertebral angle tenderness. EXT: Pulses 2+ bilaterally dorsalis pedis and radial. No lower extremity edema appreciated. SKIN: [place], dry, warm. NEURO: Alert and oriented x 3. Left hemiparesis/hemineglect noted. A&P: 81year old F with a past medical history significant for Rt MCA CVA. Pt was brought to [facility] as per EMS after found on the floor at 3 AM the date of admission. She was not treated with thrombolytic. Pt with residual left sided weakness. She was felt stable to transfer to the care of Dr Oconnell [facility] on 04/20/17. 1. Pt is transferred from [facility] to ARU under the care of Dr Oconnell. Rt MCA CVA with left hemiparesis PT/OT/speech therapy as per ARU. Pain control as per ARU. Bowel care as per ARU. DVT prophylaxis as per ARU. Patient remains on Plavix 75 mg daily, aspirin 81 mg daily and Lipitor 10 mg daily. TTE done at [facility]. Requested copy of CTA head/neck report [facility], as per records it was ordered but I do not have a result available. Consider Carotid U/S. Disposition as per ARU. Anticipated discharge date unknown. STR pending. 2. HTN. Continue lisinopril 10 mg daily and metoprolol 12.5 mg twice a day. Blood pressure is SBP 127-161. Monitor. 3. Vitamin d deficiency. Continue supplement. Vitamin D level 34.1. 4. HLD. Continue Lipitor 10 mg daily. 5. Leukocytosis. Urine culture negative 04/21/17. Pt is afebrile. CBC this AM with improvement, WBC 11.7. Await results. Lara to be d/cd. 6. Hyponatremia. Na 133 labs 05/03/17. Ur Na/Osm/Cr pending. Pt receiving IVF as below. Recheck CMP in AM. Monitor. 7. Hypermagnesemia labs 05/02/17. Pt is not taking any supplements. MOM/Fleet d/ cd. MAg trend downward today. Recheck Mag level/CMP in AM. 8. Elevated BUN/Poor po intake. IVF Normal saline x 1 liter ordered as per attending. Encourage po intake. VS, I&O, 24H, Fishbone Vital Signs/I&O Vital Signs Date Time Temp Pulse Resp B/P (MAP) Pulse Ox O2 Delivery O2 Flow Rate FiO2 05/03/17 09:08 72 161/74 05/03/17 05:57 98.6 18 96 05/02/17 20:00 Room Air I&O- Last 24 Hours up to 6 AM 05/03/17 06:00 Intake Total 170 ml Output Total 375 ml Balance -205 ml Laboratory Data 24H LABS Laboratory Tests 2 05/02/17 17:17: Urine Random Magnesium 107.3 05/02/17 18:28: Bedside Urine Color (LAB) DK YELLOW, Bedside Urine Appearance (LAB) CLOUDYH, Bedside Urine pH (LAB) 5.0, Bedside Urine Specific [place] (LAB 1.030, Bedside Urine Protein (LAB) 2+H, Bedside Urine Glucose (UA) NEGATIVE, Bedside Urine Ketones (LAB) NEGATIVE, Bedside Urine Blood POSITIVEH, Bedside Urine Nitrite ( LAB) POSITIVEH, Bedside Urine Bilirubin (LAB) NEGATIVE, Bedside Urine Urobilinogen (LAB) 1 [facility], Bedside Urine Leukocyte Esterase (L POSITIVEH, Urine WBC TNTCH, Urine RBC TNTCH, Urine Squamous Epithelial Cells LARGE AMOUNTH, Urine Transitional Epithelial Cells LARGE AMOUNT, Urine Renal Epithelial Cells SMALL AMOUNTH, Urine Bacteria LARGE AMOUNTH, Urine Hyaline Casts NONE SEEN, Urine Mucus MOD AMOUNTH, Urine Sediment Examination PERFORMED, Urine Granular Casts 1-3H 05/03/17 07:17: Anion Gap 7L, Glomerular Filtration Rate > 60.0, Blood Urea Nitrogen 51H, Creatinine 0.84, Sodium Level 133L, Potassium Level 4.6, Chloride Level 99, Carbon Dioxide Level 27, Calcium Level 9.0, Aspartate Amino Transf (AST/SGOT) 26 , Alanine Aminotransferase (ALT/SGPT) 25, Alkaline Phosphatase 80, Total Bilirubin 1.0, Total Protein 7.1, Albumin 2.8L, Magnesium Level 2.7H, Albumin/ Globulin Ratio 0.65L CBC/BMP Laboratory Tests 05/03/17 07:17 Red Blood Count 4.32, Mean Corpuscular Volume 94.1, Mean Corpuscular Hemoglobin 32.0, Mean Corpuscular Hemoglobin Concent 34.0, Red Cell Distribution Width 12.9 , Calcium Level 9.0, Aspartate Amino Transf (AST/SGOT) 26, Alanine Aminotransferase (ALT/SGPT) 25, Alkaline Phosphatase 80, Total Bilirubin 1.0, Total Protein 7.1, Albumin 2.8 L Microbiology Microbiology 04/24/17 Eye/Ear/Nose/Throat Culture - Final, Complete 04/23/17 Eye/Ear/Nose/Throat Culture - Final, Complete 05/02/17 Urine Culture, Received Pending Valentina Fisher May 03, 2017 11:25
--- NOTE | 2017-05-03 12:17 | IPNPDOC ---
[employer] Progress Note DATE OF SERVICE: 05/03/17 DATE OF ADMISSION: Apr 20, 2017 at 12:37 INPATIENT REHABILITATION ADMISSION DAY: #14 SUBJECTIVE: Patient is a 81-year-old white female with right CVA and Left hemiparesis and neglect. Reports ongoing right body pain including pectoral and left knee/leg pain. No cardiac symptoms reported. Patient get some relief with Gutierrez Alvarez ointment. Expresses difficulties with eating and therapies. ALLERGIES: See Below MEDICATIONS: Reviewed, see below. OBJECTIVE: VITAL SIGNS: Please see below. PHYSICAL EXAMINATION: GENERAL: Obese, elderly white female with flattened affect, who appears to be in very mild to no acute distress though somewhat anxious at times. HEENT: Mild left facial droop but otherwise normocephalic/atraumatic. CARDIOVASCULAR: Regular rate and rhythm with normal S1-S2. 2/4 bilateral Radial Pulses. LUNGS: All bro clear to auscultation. ABDOMEN: Obese with normal bowel sounds in all quadrants. Getting regular on BM' s now. NEUROLOGICAL: As above. Still poor body and spacial awareness, tend to lean in bed. Flattening of affect, but seems more manipulative than depressive. SKIN: Coccyx blister dressed. LABORATORY DATA: Reviewed. Please see below. MICROBIOLOGY: Please see below. IMAGING: No new imaging. DVT prophylaxis ordered?: Plavix and aspirin with DENNISE miranda. ASSESSMENT AND PLAN: 1. Rehabilitation of right CVA with left hemiparesis and neglect: PT/OT to working with patient on tilt table vs other devices similar to a standing frame. Rehab. Team Rounds: Patient has trouble with effort and tolerance for acute intensive rehabilitation and may benefit more from Subacute level of care. Will continue trial of Acute Intensive Rehab. but need to see more progress than currently achieving. The team and I will continue to try and encourage the patient to take positive control by giving her best effort in Therapies and improving her food and fluid intake. 2. Chronic pain syndrome: We need to provide patient lots of structure and refocus her on with her many years her chronic pain, that she will continue to have pain whether or not she works. The structure appears to be working and we need to remain consistent to it as well as support patient with recognitions of the effort she does make.Will try [place] to both knees and leg and right chest. 3. Coccyx blister: We will try and keep patient out of incline positions rather to have her sit at greater than 80 upright or lay at less than 20 to avoid shear on her sacral region. We will also focus on trying to improve her protein nutrition. 4. 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 For now focus patient on being up and making home discharge about her wishes and work. 5. Hyponatremia: Na+ 133 today. 6. Elevated BUN: Worse today as BUN 51 and patient with decrease appetite. I will give her 1 liter of Normal Saline to rehydrate and improve sodium as well. This should help with abnormal looking urine that is contaminated on UA. We will remove Lara Cath. about 1 hour after finishing IV saline. 6. MRSA: Patient cleared by Hospital Infection Nurse. Will stop swabs. TIME SPENT: Chart Review, examination and documentation required greater than 25 minutes. Allergies Coded Allergies: Bee Venom (Verified Allergy, Unknown, 04/20/17) Contrast Media (Verified Allergy, Unknown, 04/20/17) Iodine (Unverified Allergy, Unknown, IODINE CONTRAST, 04/20/17) Penicillins (Verified Allergy, Unknown, 04/20/17) Shellfish Allergy (Unverified Allergy, Unknown, 04/20/17) Vital Signs Vital Signs Date Time Temp Pulse Resp B/P (MAP) Pulse Ox O2 Delivery O2 Flow Rate FiO2 05/03/17 09:08 72 161/74 05/03/17 08:00 Room Air 05/03/17 05:57 98.6 18 96 Laboratory Data CBC/BMP Laboratory Tests 05/03/17 07:17 Red Blood Count 4.32, Mean Corpuscular Volume 94.1, Mean Corpuscular Hemoglobin 32.0, Mean Corpuscular Hemoglobin Concent 34.0, Red Cell Distribution Width 12.9 , Calcium Level 9.0, Aspartate Amino Transf (AST/SGOT) 26, Alanine Aminotransferase (ALT/SGPT) 25, Alkaline Phosphatase 80, Total Bilirubin 1.0, Total Protein 7.1, Albumin 2.8 L Labs 24H Laboratory Tests 2 05/02/17 17:17: Urine Random Magnesium 107.3 05/02/17 18:28: Bedside Urine Color (LAB) DK YELLOW, Bedside Urine Appearance (LAB) CLOUDYH, Bedside Urine pH (LAB) 5.0, Bedside Urine Specific [place] (LAB 1.030, Bedside Urine Protein (LAB) 2+H, Bedside Urine Glucose (UA) NEGATIVE, Bedside Urine Ketones (LAB) NEGATIVE, Bedside Urine Blood POSITIVEH, Bedside Urine Nitrite ( LAB) POSITIVEH, Bedside Urine Bilirubin (LAB) NEGATIVE, Bedside Urine Urobilinogen (LAB) [facility], Bedside Urine Leukocyte Esterase (L POSITIVEH, Urine WBC TNTCH, Urine RBC TNTCH, Urine Squamous Epithelial Cells LARGE AMOUNTH, Urine Transitional Epithelial Cells LARGE AMOUNT, Urine Renal Epithelial Cells SMALL AMOUNTH, Urine Bacteria LARGE AMOUNTH, Urine Hyaline Casts NONE SEEN, Urine Mucus MOD AMOUNTH, Urine Sediment Examination PERFORMED, Urine Granular Casts 1-3H 05/03/17 07:17: Anion Gap 7L, Glomerular Filtration Rate > 60.0, Blood Urea Nitrogen 51H, Creatinine 0.84, Sodium Level 133L, Potassium Level 4.6, Chloride Level 99, Carbon Dioxide Level 27, Calcium Level 9.0, Aspartate Amino Transf (AST/SGOT) 26 , Alanine Aminotransferase (ALT/SGPT) 25, Alkaline Phosphatase 80, Total Bilirubin 1.0, Total Protein 7.1, Albumin 2.8L, Magnesium Level 2.7H, Albumin/ Globulin Ratio 0.65L Microbiology Microbiology 04/24/17 Eye/Ear/Nose/Throat Culture - Final, Complete 04/23/17 Eye/Ear/Nose/Throat Culture - Final, Complete 05/02/17 Urine Culture, Received Pending Current Medications Current Medications Current Medications Acetaminophen (Tylenol Tab) 650 mg Q6HP PRN PO PAIN OR FEVER Last administered on 04/21/17 18:04; Start 04/20/17 at 12:45; Stop 05/20/17 at 12:44 Aspirin (Ecotrin) 81 mg DAILY PO Last administered on 05/03/17 09:08; Start at 09:00; Stop 05/21/17 at 08:59 Atorvastatin Calcium (Lipitor) 80 mg QPM PO Last administered on 05/02/17 20: 30; Start 04/20/17 at 21:00; Stop 05/20/17 at 20:59 Bisacodyl (Dulcolax Suppository) 10 mg Q2D MN Last administered on 05/03/17 09 :09; Start 05/01/17 at 09:00; Stop 05/31/17 at 08:59 Bisacodyl (Dulcolax Tab) 5 mg DAILYPRN PRN PO CONSTIPATION Last administered on 04/30/17 08:13; Start 04/20/17 at 12:45; Stop 05/20/17 at 12:44 Carbamide Perox/ Anhydrous Glycerin (Debrox) 5 drop Q12H AU Last administered on 04/25/17 20:12; Start 04/22/17 at 09:00; Stop 04/25/17 at 21:01; Status DC Clopidogrel Bisulfate (PLAVix) 75 mg DAILY PO Last administered on 05/03/17 09 :08; Start 04/21/17 at 09:00; Stop 05/21/17 at 08:59 Clotrimazole (Lotrimin 1% Vag) BID TOP Last administered on 05/03/17 09:10; Start 04/25/17 at 21:00; Stop 05/03/17 at 10:03; Status DC Home Med (Med Rec Complete!) ASDIRECTED XX ; Start 04/20/17 at 13:45; Stop at 13:46; Status DC Lisinopril (Prinivil) 10 mg DAILY PO Last administered on 05/03/17 09:08; Start 04/21/17 at 09:00; Stop 05/21/17 at 08:59 Magnesium Hydroxide (Milk Of Magnesia) 30 ml DAILYPRN PRN PO CONSTIPATION Last administered on 05/01/17 08:48; Start 04/20/17 at 12:45; Stop 05/02/17 at 08:18 ; Status DC Menthol/Methyl Salicylate (Bengay Cream) Apply topically ... QIDP PRN TOP Right Leg Pain Last administered on 05/01/17 21:24; Start 04/20/17 at 14:15; Stop 05/20/17 at 14:14 Metoprolol Tartrate (Lopressor) 12.5 mg BID PO Last administered on 05/03/17 09:08; Start 04/20/17 at 21:00; Stop 05/20/17 at 20:59 Ondansetron HCl (Zofran) 4 mg Q8HP PRN PO NAUSEA OR VOMITING Last administered on 04/24/17 09:05; Start 04/23/17 at 11:45; Stop 04/27/17 at 08:11; Status DC Sodium Biphosphate/ Sodium Phosphate (Fleet Enema) 1 ea DAILYPRN PRN [place] CONSTIPATION Last administered on 04/29/17 11:23; Start 04/20/17 at 12:45; Stop 05/02/17 at 13:46; Status DC Tramadol HCl (Ultram) 50 mg Q6HP PRN PO PAIN Last administered on 05/01/17 08: 47; Start 04/20/17 at 14:15; Stop 05/13/17 at 12:00 Vitamin D (Vitamin D) 1,000 units DAILY PO Last administered on 05/03/17 09:08 ; Start 04/21/17 at 09:00; Stop 05/21/17 at 08:59 RADHA JUDGE MD May 03, 2017 12:16
[2017-05-03 14:00] VITALS: BP 128/58
[2017-05-03 20:00] VITALS: BP 146/64
[2017-05-03] MEDS: ATORVASTATIN 20 MG TAB PO SCH (20:41)
[2017-05-04 05:00] VITALS: BP 169/78
[2017-05-04 07:05] LABS: MEAN CORPUSCULAR HEMOGLOBIN 32.9 pg (27.0-33.0); MEAN CORPUSCULAR HGB CONC 34.6 g/dl (32.0-36.5); MEAN CORPUSCULAR VOLUME 95.3 fl (80.0-96.0); RED CELL DISTRIBUTION WIDTH 12.6 % (11.5-14.5); WHITE BLOOD COUNT 10.2 K/mm3 (4.0-10.0)
[2017-05-04 07:26] LABS: ALBUMIN 2.6 GM/DL (3.2-5.2); ALKALINE PHOSPHATASE 76 U/L (45-117); ALT/SGPT 25 U/L (12-78); ANION GAP 7 MEQ/L (8-16); AST/SGOT 27 U/L (15-37); BLOOD UREA NITROGEN 34 MG/DL (7-18); CALCIUM LEVEL 8.6 MG/DL (8.8-10.2); CARBON DIOXIDE LEVEL 25 MEQ/L (21-32); CHLORIDE LEVEL 102 MEQ/L (98-107); GLOMERULAR FILTRATION RATE > 60.0 (>39); GLUCOSE, FASTING 91 MG/DL (83-110); MAGNESIUM LEVEL 2.2 MG/DL (1.8-2.4); POTASSIUM SERUM 4.3 MEQ/L (3.5-5.1); SODIUM LEVEL 134 MEQ/L (136-145); TOTAL PROTEIN 6.9 GM/DL (6.4-8.2)
[2017-05-04] MEDS ORDERED: NS 1,000 ML IV ONE (08:30)
[2017-05-04] MEDS: VITAMIN D 1,000 INTERNATIONAL UNITS TABLET PO SCH (08:34)
[2017-05-04] MEDS: CLOPIDOGREL 75 MG TAB PO SCH (08:34)
[2017-05-04] MEDS: ASPIRIN 81 MG ENTERIC TAB PO SCH (08:35)
[2017-05-04] MEDS: METOPROLOL TART 12.5 MG PER 1/2 TAB PO SCH ×2 (08:35→20:26)
[2017-05-04] MEDS: LISINOPRIL 10 MG TAB PO SCH (08:35)
--- NOTE | 2017-05-04 10:28 | IPNPDOC ---
[employer] Progress Note DATE OF SERVICE: 05/04/17 DATE OF ADMISSION: Apr 20, 2017 at 12:37 INPATIENT REHABILITATION ADMISSION DAY: #15 SUBJECTIVE: Patient is a 81-year-old white female with right CVA and Left hemiparesis and neglect. Reports ongoing right body pain including pectoral and left knee/leg pain. No cardiac symptoms reported. Expresses difficulties with eating and therapies, but seems to do them when she is getting more attention. She has been back and forth on using the IV to rehydrate. ALLERGIES: See Below MEDICATIONS: Reviewed, see below. OBJECTIVE: VITAL SIGNS: Please see below. PHYSICAL EXAMINATION: GENERAL: Obese, elderly white female with flattened affect, who appears to be in very mild to no acute distress though somewhat anxious at times. HEENT: Mild left facial droop but otherwise normocephalic/atraumatic. CARDIOVASCULAR: Regular rate and rhythm with normal S1-S2. 2/4 bilateral Radial Pulses. LUNGS: All bro clear to auscultation. ABDOMEN: Obese with normal bowel sounds in all quadrants. NEUROLOGICAL: As above. Still only poor to fair body and spacial awareness, tend to lean in bed. Flattening of affect, but seems more manipulative than depressive. SKIN: Coccyx blister gone but still some erythema. LABORATORY DATA: Reviewed. Please see below. MICROBIOLOGY: Please see below. IMAGING: No new imaging. DVT prophylaxis ordered?: Plavix and aspirin with DENNISE miranda. ASSESSMENT AND PLAN: 1. Rehabilitation of right CVA with left hemiparesis and neglect: PT/OT to working with patient is requiring constant verbal support and reminding of what gains she can get. Often seems to do thing to get people to come and spend more time talking to her. We will be transferring her to a SNF for lower intensity therapy. She may need Psychiatric reassessment and treatment there. She seems to be either manipulating or truly in a quandry as to whether working will be worthwhile and will get her home. 2. Chronic pain syndrome: We need to provide patient lots of structure and refocus her on with her many years her chronic pain, that she will continue to have pain whether or not she works. The structure appears to be working and we need to remain consistent to it as well as support patient with recognitions of the effort she does make. 3. Coccyx blister: Now just erythem, and we will try and keep patient out of incline positions rather to have her sit at greater than 80 upright or lay at less than 20 to avoid shear on her sacral region. We will also focus on trying to improve her protein nutrition. 4. 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 For now focus patient on being up and making home discharge about her wishes and work. As noted above, focus and effort is variable and related to mood or immediate gains. 5. Hyponatremia: Na+ 134 today. She seems to have definitely benefited from the liter of normal saline. 6. Elevated BUN: Better today as BUN 34 better than yesterday's 51 but patient still with decrease appetite. 6. MRSA: Patient cleared by Hospital Infection Nurse. Will stop swabs. TIME SPENT: Chart Review, examination and documentation required greater than 25 minutes. Allergies Coded Allergies: Bee Venom (Verified Allergy, Unknown, 04/20/17) Contrast Media (Verified Allergy, Unknown, 04/20/17) Iodine (Unverified Allergy, Unknown, IODINE CONTRAST, 04/20/17) Penicillins (Verified Allergy, Unknown, 04/20/17) Shellfish Allergy (Unverified Allergy, Unknown, 04/20/17) Vital Signs Vital Signs Date Time Temp Pulse Resp B/P (MAP) Pulse Ox O2 Delivery O2 Flow Rate FiO2 05/04/17 09:00 Room Air 05/04/17 08:35 169/78 05/04/17 05:00 99.4 69 18 95 Laboratory Data CBC/BMP Laboratory Tests 05/04/17 06:16 Red Blood Count 4.05, Mean Corpuscular Volume 95.3, Mean Corpuscular Hemoglobin 32.9, Mean Corpuscular Hemoglobin Concent 34.6, Red Cell Distribution Width 12.6 , Calcium Level 8.6 L, Aspartate Amino Transf (AST/SGOT) 27, Alanine Aminotransferase (ALT/SGPT) 25, Alkaline Phosphatase 76, Total Bilirubin 1.0, Total Protein 6.9, Albumin 2.6 L Labs 24H Laboratory Tests 2 05/03/17 15:19: Urine Random Osmolality 929H, Urine Random Creatinine 153.0, Urine Random Sodium 41 05/04/17 06:16: Anion Gap 7L, Glomerular Filtration Rate > 60.0, Blood Urea Nitrogen 34H, Creatinine 0.60, Sodium Level 134L, Potassium Level 4.3, Chloride Level 102, Carbon Dioxide Level 25, Calcium Level 8.6L, Aspartate Amino Transf (AST/SGOT) 27, Alanine Aminotransferase (ALT/SGPT) 25, Alkaline Phosphatase 76, Total Bilirubin 1.0, Total Protein 6.9, Albumin 2.6L, Magnesium Level 2.2, Albumin/ Globulin Ratio 0.60L Microbiology Microbiology 04/24/17 Eye/Ear/Nose/Throat Culture - Final, Complete 05/02/17 Urine Culture, Received Pending Current Medications Current Medications Current Medications Acetaminophen (Tylenol Tab) 650 mg Q6HP PRN PO PAIN OR FEVER Last administered on 04/21/17 18:04; Start 04/20/17 at 12:45; Stop 05/20/17 at 12:44 Aspirin (Ecotrin) 81 mg DAILY PO Last administered on 05/04/17 08:35; Start at 09:00; Stop 05/21/17 at 08:59 Atorvastatin Calcium (Lipitor) 80 mg QPM PO Last administered on 05/03/17 20: 41; Start 04/20/17 at 21:00; Stop 05/20/17 at 20:59 Bisacodyl (Dulcolax Suppository) 10 mg Q2D [place] Last administered on 05/03/17 09 :09; Start 05/01/17 at 09:00; Stop 05/31/17 at 08:59 Bisacodyl (Dulcolax Tab) 5 mg DAILYPRN PRN PO CONSTIPATION Last administered on 04/30/17 08:13; Start 04/20/17 at 12:45; Stop 05/20/17 at 12:44 Carbamide Perox/ Anhydrous Glycerin (Debrox) 5 drop Q12H AU Last administered on 04/25/17 20:12; Start 04/22/17 at 09:00; Stop 04/25/17 at 21:01; Status DC Clopidogrel Bisulfate (PLAVix) 75 mg DAILY PO Last administered on 05/04/17 08 :34; Start 04/21/17 at 09:00; Stop 05/21/17 at 08:59 Clotrimazole (Lotrimin 1% Vag) BID TOP Last administered on 05/03/17 09:10; Start 04/25/17 at 21:00; Stop 05/03/17 at 10:03; Status DC Home Med (Med Rec Complete!) ASDIRECTED XX ; Start 04/20/17 at 13:45; Stop at 13:46; Status DC Lisinopril (Prinivil) 10 mg DAILY PO Last administered on 05/04/17 08:35; Start 04/21/17 at 09:00; Stop 05/21/17 at 08:59 Magnesium Hydroxide (Milk Of Magnesia) 30 ml DAILYPRN PRN PO CONSTIPATION Last administered on 05/01/17 08:48; Start 04/20/17 at 12:45; Stop 05/02/17 at 08:18 ; Status DC Menthol/Methyl Salicylate (Bengay Cream) Apply topically ... QIDP PRN TOP Right Leg Pain Last administered on 05/01/17 21:24; Start 04/20/17 at 14:15; Stop 05/20/17 at 14:14 Metoprolol Tartrate (Lopressor) 12.5 mg BID PO Last administered on 05/04/17 08:35; Start 04/20/17 at 21:00; Stop 05/20/17 at 20:59 Ondansetron HCl (Zofran) 4 mg Q8HP PRN PO NAUSEA OR VOMITING Last administered on 04/24/17 09:05; Start 04/23/17 at 11:45; Stop 04/27/17 at 08:11; Status DC Sodium Biphosphate/ Sodium Phosphate (Fleet Enema) 1 ea DAILYPRN PRN [place] CONSTIPATION Last administered on 04/29/17 11:23; Start 04/20/17 at 12:45; Stop 05/02/17 at 13:46; Status DC Tramadol HCl (Ultram) 50 mg Q6HP PRN PO PAIN Last administered on 05/01/17 08: 47; Start 04/20/17 at 14:15; Stop 05/13/17 at 12:00 Vitamin D (Vitamin D) 1,000 units DAILY PO Last administered on 05/04/17 08:34 ; Start 04/21/17 at 09:00; Stop 05/21/17 at 08:59 RADHA JUDGE MD May 04, 2017 10:28
--- NOTE | 2017-05-04 11:43 | IPNPDOC ---
Date Seen The patient was seen on 05/04/17. Progress Note HPI: 81year old F with a past medical history significant for Rt MCA CVA. Pt was brought to [facility] as per EMS after found on the floor at 3 AM the date of admission. She was not treated with thrombolytic. Pt with residual left sided weakness. She was felt stable to transfer to the care of Dr Oconnell [facility] on 04/20/17. The Pt is a poor historian. She continues to frequently close her eyes and does not participate with history or respond to questions. She is sitting up in chair at this time with OT. She apparently has had poor po intake. She states she is drinking but does not like the food. Denies any fevers, chills, weakness, fatigue, Headache, Chest Pain, Shortness of breath, cough, palpitations, abdominal pain, N/V/D or changes in bowel or bladder habits. 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 MRI Brain [facility] 04/17/17 acute infarct c/w Rt MCA, chronic microvascular disease. CTA head/neck ordered [facility] per notes, I do not see copy of result at this time. H/O TIA HTN Vitamin D Def HLD OA/Chronic pain/leg pain/DJD EKG [facility] 04/17/17. SR 67 bpm. TTE [facility] 04/23. Nml EF, 69%, no wall motion abnormality. personality disorder edentulous PSHX: cholecystectomy ROS: As noted in HPI, otherwise 11pt ROS of systems reviewed and remarkable for chronic knee pain, RLE pain, RUE pain. PE: GEN: 81yoF, appears stated age. No acute distress. Alert and oriented x 3. Limited historian. Eyes are closed intermittently throughout exam. HEENT: Normocephalic, atraumatic. Moist mucous membranes. trachea midline. No lymphadenopathy or thyromegaly appreciated. CHEST: Regular rate and rhythm, +S1, +S2 LUNGS: Clear to auscultation bilaterally. No wheezes, rales, or rhonchi. Breathing appears symmetric and easy. Patient is speaking in full sentences. No accessory muscle use. ABD: Round, soft, non-tender, non-distended. +Bowel sounds throughout. No rebound or guarding. No costovertebral angle tenderness. EXT: Pulses 2+ bilaterally dorsalis pedis and radial. No lower extremity edema appreciated. SKIN: [place], dry, warm. NEURO: Alert and oriented x 3. Left hemiparesis/hemineglect noted. A&P: 81year old F with a past medical history significant for Rt MCA CVA. Pt was brought to [facility] as per EMS after found on the floor at 3 AM the date of admission. She was not treated with thrombolytic. Pt with residual left sided weakness. She was felt stable to transfer to the care of Dr Oconnell [facility] on 04/20/17. 1. Pt is transferred from [facility] to ARU under the care of Dr Oconnell. Rt MCA CVA with left hemiparesis PT/OT/speech therapy as per ARU. Pain control as per ARU. Bowel care as per ARU. DVT prophylaxis as per ARU. Patient remains on Plavix 75 mg daily, aspirin 81 mg daily and Lipitor 10 mg daily. TTE done at [facility]. Requested copy of CTA head/neck report [facility], as per records it was ordered but I do not have a result available. Consider Carotid U/S. Disposition as per ARU. Anticipated discharge date 05/05/17 to STR. 2. HTN. Continue lisinopril 10 mg daily and metoprolol 12.5 mg twice a day. Blood pressure is SBP 128-168. Monitor. 3. Vitamin d deficiency. Continue supplement. Vitamin D level 34.1. 4. HLD. Continue Lipitor 10 mg daily. 5. Leukocytosis. Urine culture negative 04/21/17. Pt is afebrile. CBC this AM with improvement, WBC 10.2. Await results. Marco d/cd. 6. Hyponatremia. Na 134 labs 05/04/17. Ur Na/Osm/Cr. Pt received IVF x 1 liter. Recheck CMP in AM. Monitor. 7. Hypermagnesemia labs 05/02/17. Pt is not taking any supplements. TIGRE/Kasi d/ cd. MAg WNL today. Recheck Mag level/CMP in AM. 8. Elevated BUN/Poor po intake. IVF Normal saline x 1 liter completed 05/03/17. BUN improved with labs today. Continue to encourage po intake. VS, I&O, 24H, Fishbone Vital Signs/I&O Vital Signs Date Time Temp Pulse Resp B/P (MAP) Pulse Ox O2 Delivery O2 Flow Rate FiO2 05/04/17 09:00 Room Air 05/04/17 08:35 169/78 05/04/17 05:00 99.4 69 18 95 I&O- Last 24 Hours up to 6 AM 05/04/17 06:00 Intake Total 1045 ml Output Total 400 ml Balance 645 ml Laboratory Data 24H LABS Laboratory Tests 2 05/03/17 15:19: Urine Random Osmolality 929H, Urine Random Creatinine 153.0, Urine Random Sodium 41 05/04/17 06:16: Anion Gap 7L, Glomerular Filtration Rate > 60.0, Blood Urea Nitrogen 34H, Creatinine 0.60, Sodium Level 134L, Potassium Level 4.3, Chloride Level 102, Carbon Dioxide Level 25, Calcium Level 8.6L, Aspartate Amino Transf (AST/SGOT) 27, Alanine Aminotransferase (ALT/SGPT) 25, Alkaline Phosphatase 76, Total Bilirubin 1.0, Total Protein 6.9, Albumin 2.6L, Magnesium Level 2.2, Albumin/ Globulin Ratio 0.60L CBC/BMP Laboratory Tests 05/04/17 06:16 Red Blood Count 4.05, Mean Corpuscular Volume 95.3, Mean Corpuscular Hemoglobin 32.9, Mean Corpuscular Hemoglobin Concent 34.6, Red Cell Distribution Width 12.6 , Calcium Level 8.6 L, Aspartate Amino Transf (AST/SGOT) 27, Alanine Aminotransferase (ALT/SGPT) 25, Alkaline Phosphatase 76, Total Bilirubin 1.0, Total Protein 6.9, Albumin 2.6 L Microbiology Microbiology 04/24/17 Eye/Ear/Nose/Throat Culture - Final, Complete 05/02/17 Urine Culture, Received Pending Valentina Fisher May 04, 2017 11:43
[2017-05-04 14:00] VITALS: BP 157/72
[2017-05-04] MEDS ORDERED: ANALGESIC BALM CRM 120 GM TOP PRN (16:00)
[2017-05-04] MEDS ORDERED: TRAM50TA2 PO (16:56)
[2017-05-04] MEDS ORDERED: METO1TAB87 PO (16:56)
[2017-05-04] MEDS ORDERED: VITAD1000T PO (16:56)
[2017-05-04 20:00] VITALS: BP 135/80
[2017-05-04] MEDS: ATORVASTATIN 20 MG TAB PO SCH (20:26)
[2017-05-04] MEDS: traMADol 50 MG TAB PO PRN (20:27)
[2017-05-04] MEDS: ANALGESIC BALM CRM 120 GM TOP PRN (20:36)
[2017-05-05 06:00] VITALS: BP 157/65
[2017-05-05 07:08] LABS: MEAN CORPUSCULAR HEMOGLOBIN 32.2 pg (27.0-33.0); MEAN CORPUSCULAR HGB CONC 34.9 g/dl (32.0-36.5); MEAN CORPUSCULAR VOLUME 92.2 fl (80.0-96.0); RED CELL DISTRIBUTION WIDTH 12.9 % (11.5-14.5)
[2017-05-05 07:32] LABS: ALBUMIN 2.7 GM/DL (3.2-5.2); ALBUMIN/GLOBULIN RATIO 0.69 (1.00-1.93); ALKALINE PHOSPHATASE 78 U/L (45-117); ALT/SGPT 26 U/L (12-78); ANION GAP 5 MEQ/L (8-16); AST/SGOT 22 U/L (15-37); BLOOD UREA NITROGEN 26 MG/DL (7-18); CALCIUM LEVEL 8.7 MG/DL (8.8-10.2); CARBON DIOXIDE LEVEL 28 MEQ/L (21-32); CHLORIDE LEVEL 104 MEQ/L (98-107); CREATININE FOR GFR 0.64 MG/DL (0.55-1.02); GLOMERULAR FILTRATION RATE > 60.0 (>39); GLUCOSE, FASTING 92 MG/DL (83-110); MAGNESIUM LEVEL 2.1 MG/DL (1.8-2.4); POTASSIUM SERUM 4.5 MEQ/L (3.5-5.1); SODIUM LEVEL 137 MEQ/L (136-145); TOTAL PROTEIN 6.6 GM/DL (6.4-8.2)
[2017-05-05 08:14] VITALS: BP 157/65
[2017-05-05] MEDS: CLOPIDOGREL 75 MG TAB PO SCH (08:14)
[2017-05-05] MEDS: ASPIRIN 81 MG ENTERIC TAB PO SCH (08:14)
[2017-05-05] MEDS: LISINOPRIL 10 MG TAB PO SCH (08:14)
[2017-05-05] MEDS: METOPROLOL TART 12.5 MG PER 1/2 TAB PO SCH (08:15)
[2017-05-05] MEDS: BISACODYL 10 MG SUPP PR SCH (08:15)
[2017-05-05] MEDS: VITAMIN D 1,000 INTERNATIONAL UNITS TABLET PO SCH (08:15)
[2017-05-05] MEDS: traMADol 50 MG TAB PO PRN (08:15)
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
--- NOTE | 2017-05-06 13:34 | ECGEPIP ---
Stationary ECG Study [facility] Test Date: 2017-05-04 Pat Name: RIMMA PIERRE Department: Room: [place] [address] Gender: F Mortgage Lender: : [id number] Requested By: RADHA Sun Order Number: [id number] Reading MD: Jacinta Atkinson Measurements Intervals [place] Rate: 77 P: -24 NV: 132 QRS: 2 QRSD: 96 T: 29 QT: 398 QTc: 451 Interpretive Statements SINUS RHYTHM NO PRIOR Electronically Signed On 05-06-2017 13:33:52 EDT by Jacinta Atkinson
== END 2017-05-05 09:05 | DRG 57 ==
LOC: M PM&R 12:37
PROVIDERS: ADMIT Physical Medicine & Rehabilitation; ATTEND Physical Medicine & Rehabilitation
DX: I69.354 Hemiplegia and hemiparesis following cerebral infarction affecting left non-dominant side (principal); E87.1 Hypo-osmolality and hyponatremia; I10 Essential (primary) hypertension; E78.5 Hyperlipidemia, unspecified; Z86.73 Personal history of transient ischemic attack (TIA), and cerebral infarction without residual deficits; F60.9 Personality disorder, unspecified; I70.209 Unspecified atherosclerosis of native arteries of extremities, unspecified extremity; I69.321 Dysphasia following cerebral infarction; I69.322 Dysarthria following cerebral infarction; G89.4 Chronic pain syndrome; Z79.899 Other long term (current) drug therapy; E55.9 Vitamin D deficiency, unspecified; M19.90 Unspecified osteoarthritis, unspecified site; E78.00 Pure hypercholesterolemia, unspecified; Z88.0 Allergy status to penicillin; Z91.041 Radiographic dye allergy status; Z91.013 Allergy to seafood; Z91.038 Other insect allergy status; S30.820A Blister (nonthermal) of lower back and pelvis, initial encounter; F41.9 Anxiety disorder, unspecified; F32.9 Major depressive disorder, single episode, unspecified; E66.9 Obesity, unspecified; Z66 Do not resuscitate; E83.41 Hypermagnesemia; D72.829 Elevated white blood cell count, unspecified; X50.1XXA Overexertion from prolonged static or awkward postures, initial encounter; Y92.239 Unspecified place in hospital as the place of occurrence of the external cause